=== PATIENT | male | born 1975 | race Caucasian/White ===

== ENCOUNTER 2021-02-23 19:58 | Inpatient (IN) | payer MEDICAID, SELFPAY ==
--- NOTE | 2021-02-23 19:58 | ECHOCS_ITS ---
Reason For Study: NSTEMI Procedure This was a 2D Doppler, Color Flow transthoracic echocardiogram. The study was technically difficult. Contrast injection was performed. Exam performed portable in patient room. Left Ventricle Normal LV size. The estimated ejection fraction is 55-60 %. No evidence for diastolic dysfunction. hypokinesis of a small portion of the mid inferior wall. Right Ventricle Normal RV size. Normal systolic function. Atria Normal left atrium. Normal right atrium. No doppler evidence for ASD. Mitral Valve There is no mitral valve stenosis. Mild-Moderate (1-2+) mitral valve insufficiency. Tricuspid Valve There is no tricuspid stenosis. Trivial tricuspid valve insufficiency. Unable to estimate RV systolic pressure due to insufficient tricuspid regurgitant envelope. Aortic Valve Trisinus/trileaflet aortic valve. There is no aortic stenosis. Trivial aortic valve insufficiency. Pulmonic Valve There is no pulmonic valvular stenosis. No pulmonic valve insufficiency. Great Vessels Normal aortic root. Pericardium/Pleural No pericardial effusion. Medication Diluted definity 2.5ml given slow IV push to enhance endocardial definition. MMode/2D Measurements & Calculations LVIDd: 4.3 cm IVSd: 1.2 cm Ao root diam: 3.8 cm LVIDs: 3.1 cm LVPWd: 1.0 cm RVDd: 3.1 cm FS: 29.2 % LAV(MOD-bp): 51.2 ml LVAd ap4: 34.6 cm2 LVAd ap2: 36.1 cm2 LAV(MOD-bp) Indexed: 21.6 ml/m2 LVLd ap4: 9.0 cm LVLd ap2: 9.0 cm LAV(MOD-sp2): 48.0 ml EDV(MOD-sp4): 107.7 ml EDV(MOD-sp2): 118.9 ml LAV(MOD-sp4): 51.4 ml EDV(sp4-el): 113.0 ml EDV(sp2-el): 122.9 ml LVAs ap4: 24.5 cm2 LVAs ap2: 22.4 cm2 LVLs ap4: 8.0 cm LVLs ap2: 7.7 cm ESV(MOD-sp4): 63.7 ml ESV(MOD-sp2): 55.1 ml ESV(sp4-el): 63.3 ml ESV(sp2-el): 55.4 ml EF(MOD-sp4): 40.9 % EF(MOD-sp2): 53.6 % EF(sp4-el): 44.0 % SV(MOD-sp4): 44.0 ml SV(MOD-sp2): 63.8 ml SV(sp4-el): 49.7 ml LA A4 area: 18.8 cm2 LA dimension(2D): 3.9 cm RA A4 area: 12.0 cm2 Time Measurements MV dec time: 0.19 sec Doppler Measurements & Calculations MV E max eddie: 84.2 cm/sec Lat Peak E' Eddie: 8.5 cm/sec Med Peak E' Eddie: 4.9 cm/sec MV A max eddie: 94.1 cm/sec E/E' lat: 9.9 E/E' med: 17.2 MV E/A: 0.90 Ao V2 max: 89.4 cm/sec LV V1 max: 73.3 cm/sec TR max eddie: 271.6 cm/sec Ao max P.2 mmHg LV V1 max P.2 mmHg TR max P.5 mmHg ECHO/Echo Complete W/ Contrast Interpretation Summary The estimated ejection fraction is 55-60 %. No evidence for diastolic dysfunction. Mild-Moderate (1-2+) mitral valve insufficiency. Trivial aortic valve insufficiency. Ordering Physician: Kandy Fong Performed By: Sho Blount, RICHIE, RVT
--- NOTE | 2021-02-23 19:59 | EKG12_ITS ---
Test Reason : AM EKG Blood Pressure : / mmHG Vent. Rate : 073 BPM Atrial Rate : 073 BPM P-R Int : 166 ms QRS Dur : 104 ms QT Int : 444 ms P-R-T Axes : 022 039 059 degrees QTc Int : 489 ms Normal sinus rhythm Prolonged QT Abnormal ECG When compared with ECG of 23-FEB-2021 20:44, MANUAL COMPARISON REQUIRED, DATA IS UNCONFIRMED Confirmed by BLADIMIR DIEGO, MORALES ([id number]), medical editor DEEDEE ROSALES ([id number]) on 02/28/2021 10:41:53 AM Referred By: OPAL Confirmed By:DIANA GRARISON MD
[2021-02-23 20:38] VITALS: PULSE 73; BMI 35.1
--- NOTE | 2021-02-23 20:45 | HP.PCM_ITS ---
Documented by User: NADINE Norris 02/23/21 21:07 HPI - General General Date of Admission: 02/23/21 Date of Service: 02/23/21 Chief Complaint: Chest pain HPI Narrative MARLENE WILSON, is a 46 M who presents from outside with complaints of chest pain. Patient states that the pain is 8 out of 10 currently and radiates to his left arm sometimes all the way down to his fingertips. Patient denies radiation to his back or jaw. Patient states that this was sudden onset earlier today. Patient received multiple doses of nitroglycerin and a loading dose of aspirin at outside facility with minor improvement of pain. Patient also received IV fentanyl which was more effective for pain control. Patient states that right now his pain is beginning to escalate again. EKG shows normal sinus rhythm with prolonged QT. Labs reviewed from prior facility, CBC unremarkable. CMP shows slightly elevated glucose 116 and high-sensitivity troponin 123.1. Chest x-ray and CTA negative for acute findings. [facility] Medical History (Updated 02/23/21 @ 21:38 by Wu Lancaster) Anxiety Depression DVT (deep venous thrombosis) Home Medications aripiprazole [Abilify] 2 mg PO DAILY 02/23/21 [History Last Taken 02/22/21] paroxetine HCl [Paxil] 80 mg PO DAILY 02/23/21 [History Last Taken 02/22/21] Allergy/AdvReac Type Severity Reaction Status Date / Time Penicillins AdvReac Anaphylaxis Verified 02/23/21 20:53 Family History (Updated 02/23/21 @ 20:58 by NADINE Norris) Grandfather Factor 5 Leiden mutation, heterozygous Hypertension Heart disease Sister Diabetes Mother Hypertension Father Unknown family medical history Other Bleeding disorder Surgical History (Updated 02/23/21 @ 20:58 by NADINE Norris) H/O knee surgery Social History (Updated 02/23/21 @ 20:59 by NADINE Norris) Smoking Status: Never smoker alcohol intake: current alcohol intake frequency: holidays/special occasions only substance use type: does not use ROS Constitutional Constitutional: Denies anorexia, chills, fatigue, malaise or weakness Cardiovascular Cardiovascular: Reports chest pain and radiating jaw, neck or arm pain; Denies edema or palpitations Respiratory/Chest Respiratory/Chest: Denies cough, shortness of breath at rest or shortness of breath with exertion Gastrointestinal Gastrointestinal: Denies abdominal pain, constipation, diarrhea, nausea or vo miting Genitourinary Genitourinary: Denies dysuria Musculoskeletal Musculoskeletal: Denies back pain, extremity pain, joint pain or joint stiffness Integumentary Integumentary: Denies dry skin Neurologic Neurologic: Denies abnormal gait, abnormal speech, confusion or dizziness Psychiatric Psychiatric: Reports anxiety and depression Endocrine Endocrinology: Denies change in body appearance Hematologic/Lymphatic Hematologic/Lymphatic: Denies easy bleeding or easy bruising Physical Exam Const alert and oriented x3 General Appearance: cooperative HEENT normocephalic and head/scalp atraumatic Eyes conjunctivae normal and no scleral icterus Neck supple and no JVD General: trachea midline Resp normal respiratory effort, normal air movement and clear to auscultation bilaterally Cardio regular rate, regular rhythm, S1 normal heart sound, S2 normal heart sound and peripheral pulses 2+ throughout GI normal to inspection, nondistended, normoactive bowel sounds, soft to palpation and non-tender Extremity normal capillary refill and no clubbing, cyanosis or edema General Extremity: no tenderness to palpation of joints or extremities Skin General Skin Exam: turgor normal Lesions: no lesions Rashes: no rashes Neuro no focal motor deficits and no sensory deficits noted Speech: speech normal Motor Exam: Negative for general weakness Psych thought process normal, cooperative and affect normal Appearance: appropriate Assessment & Plan Assessment/Plan (1) Chest pain: QUALIFIERS: Chest pain type: unspecified Qualified Code(s): R07.9 - Chest pain, unspecified (2) Factor 5 Leiden mutation, heterozygous: PLAN: 1. Chest pain -Admit to PCU for cardiac monitoring -Trend cardiac enzymes first value 123.5 from outside facility -CBC, CMP, lipid profile, TSH, mag ordered -Continue heparin drip per protocol -We will start atorvastatin, daily aspirin, lisinopril, metoprolol. -Consult cardiology, case discussed with Dr. Scott prior to patient's transfer -Echocardiogram ordered for a.m. -EKG in the upon arrival, shows normal sinus rhythm with QT prolongation -Daily weights with strict intake and output -Diet ordered n.p.o. at midnight -O2 per protocol 2. Factor V Leiden mutation -Patient reports he is not currently anticoagulated, daily baby aspirin only -CTA and CXR completed at outside facility negative for acute findings -Patient currently on heparin gtt for NSTEMI, will evaluate for anticoagulation pending results of cardiology evaluation 3. Anxiety and depression -Continue aripaprazole and paxil. DVT prophylaxis-SCD's This patient was seen by NADINE Norris under the supervision of Dr. Fong. Documented by User: Dr. Kandy Fong MD 02/23/21 22:10 HPI - General General Date of Admission: 02/23/21 [facility] Medical History (Updated 02/23/21 @ 21:38 by Wu Lancaster) Anxiety Depression DVT (deep venous thrombosis) Home Medications aripiprazole [Abilify] 2 mg PO DAILY 02/23/21 [History Last Taken 02/22/21] paroxetine HCl [Paxil] 80 mg PO DAILY 02/23/21 [History Last Taken 02/22/21] Allergy/AdvReac Type Severity Reaction Status Date / Time Penicillins AdvReac Anaphylaxis Verified 02/23/21 20:53 Family History (Updated 02/23/21 @ 20:58 by Cat Sargent NP-C) Grandfather Factor 5 Leiden mutation, heterozygous Hypertension Heart disease Sister Diabetes Mother Hypertension Father Unknown family medical history Other Bleeding disorder Surgical History (Updated 02/23/21 @ 20:58 by NADINE Norris) H/O knee surgery Social History (Updated 02/23/21 @ 20:59 by NADINE Norris) Smoking Status: Never smoker alcohol intake: current alcohol intake frequency: holidays/special occasions only substance use type: does not use
[2021-02-23 20:47] VITALS: RESP 16; O2SAT 98
[2021-02-23 20:50] VITALS: BP 166/115; PULSE 69; RESP 16; TEMP 36.6; O2SAT 96
[2021-02-23] MEDS: Morphine 2 MG/ML Syringe IV (21:22)
[2021-02-23] MEDS: HEPARIN/D5w 25,000 UNITS 25,000 UNITS/250 ML IV.SOLN. 14.2 UNITS IV (21:33)
[2021-02-23] MEDS: 0.9% Normal Saline 1,000 ML 100 ML IV (22:10)
[2021-02-23] MEDS: oxyCODONE 5 MG Tablet PO (22:33)
[2021-02-23] MEDS: Famotidine 20 MG Tablet PO (22:33)
[2021-02-23 22:34] VITALS: PULSE 67
[2021-02-23] MEDS: Metoprolol Tartrate 25 MG Tablet 12.5 MG PO (22:34)
[2021-02-23] MEDS: Atorvastatin Calcium 80 MG Tablet PO (22:34)
[2021-02-23] MEDS: Mag Hydrox/Al Hydrox/Simeth 30 ML UDC PO (22:35)
[2021-02-23 22:37] LABS: Magnesium 2.3 mg/dL (1.6-2.6)
[2021-02-23] MEDS: Paroxetine 20 MG Tablet 80 MG PO (22:37)
[2021-02-23] MEDS: ARIPiprazole 2 MG Tablet PO (22:38)
[2021-02-23 22:51] LABS: Troponin-I HS 1504.4 pg/mL (3.0-78.5)
[2021-02-23 23:31] LABS: Troponin-I HS 3131.5 pg/mL (3.0-78.5)
[2021-02-24] VITALS (19 sets, daily range): BP systolic 118–166; BP diastolic 74–113; PULSE 64–96; RESP 13–23; TEMP 36.5–36.7; O2SAT 94–99
[2021-02-24] MEDS: Morphine 2 MG/ML Syringe IV ×3 (00:41→08:42)
[2021-02-24 02:47] LABS: Absolute Lymphocyte Count 1.73 X10^3/uL (0.83-4.51); Absolute Neutrophil Count 7.9 X10^3/uL (2.0-7.7); Basophil# 0.05 X10^3/uL; Basophil% 0.5 % (0-1); Eosinophil# 0.03 X10^3/uL; Eosinophils% 0.3 % (0-5); Hematocrit 43.9 % (40-54); Lymphocyte # 1.73 X10^3/ul (0.83-4.51); Lymphocyte % 16.9 % (19-41); Mean Corp Hgb Conc 34.2 g/dL (32-36); Mean Corpuscular Hgb 29.6 pg (27.0-32.0); Mean Corpuscular Volume 86.8 fL (80-94); Mean Platelet Vol. 10.8 fl (6.2-12.0); Monocyte# 0.51 X10^3/uL; NRBC Flagged by Analyzer 0 % (0-5); Neutrophil # 7.88 X10^3/uL (2.7-7.7); Neutrophil % 76.7 % (47-70); Platelet Count 200 K/mm3 (150-450); RBC Distribution Width CV 13.1 % (11.6-14.6); RBC Distribution Width SD 40.2 fl (35.1-43.9); Red Blood Count 5.06 M/mm3 (4.6-6.2); White Blood Count 10.3 K/mm3 (4.4-11.0)
[2021-02-24 02:59] LABS: Partial Thromboplast Time 68.7 Seconds (24.1-36.2)
[2021-02-24] MEDS: oxyCODONE 5 MG Tablet PO ×2 (03:09→10:39)
[2021-02-24 03:11] LABS: ALB/GLOB Ratio 1.1 RATIO (0.9-2.4); AST(SGOT) 103 U/L (15-37); Alanine Aminotransfer ALT/SGPT 48 U/L (16-61); Albumin, Serum 3.6 g/dL (3.2-5.0); Alkaline Phosphatase 94 U/L (45-117); Anion Gap 8 (5-15); BUN 9 mg/dL (7-18); BUN/Creat Ratio 9.6 RATIO (10-20); Calcium,Total 7.9 mg/dL (8.5-10.1); Chloride 106 mmol/L (98-107); Cholesterol 198 mg/dL (200); Creatinine, Serum 0.94 mg/dL (0.70-1.30); EST Glomerular Filtration Rate 91 mL/min (>60); Est Glom Filt Rate - Afr Amer 111 mL/min (>60); Estimated Creatinine Clearance 105.48 ml/min; Globulin 3.3 g/dL (2.2-4.2); Glucose 136 mg/dL (74-106); High Density Lipoprotein 34 mg/dL; Potassium 3.9 mmol/L (3.5-5.1); Protein, Total 6.9 g/dL (6.4-8.2); Sodium Level 136 mmol/L (136-145); Triglycerides 184 mg/dL; Very Low Density Lipoprotein 37 mg/dL (5-40)
[2021-02-24] MEDS: Mag Hydrox/Al Hydrox/Simeth 30 ML UDC PO (05:31)
--- NOTE | 2021-02-24 05:55 | EKG12_ITS ---
Test Reason : NSTEMI ADMIT Blood Pressure : / mmHG Vent. Rate : 075 BPM Atrial Rate : 075 BPM P-R Int : 160 ms QRS Dur : 100 ms QT Int : 432 ms P-R-T Axes : 021 042 058 degrees QTc Int : 482 ms Normal sinus rhythm Prolonged QT Abnormal ECG No previous ECGs available Confirmed by BLADIMIR DIEGO, MORALES ([id number]), publications editor DEEDEE ROSALES ([id number]) on 02/28/2021 10:42:20 AM Referred By: OPAL Confirmed By:DIANA GARRISON MD
[2021-02-24] MEDS: Lisinopril 10 MG Tablet PO (06:23)
[2021-02-24] MEDS: Aspirin E.C. 81 MG Tablet PO (06:23)
[2021-02-24] MEDS: Metoprolol Tartrate 25 MG Tablet 12.5 MG PO ×2 (06:23→21:04)
[2021-02-24] MEDS: 0.9% Normal Saline 1,000 ML 100 ML IV (08:31)
[2021-02-24] MEDS: 0.9% Saline Lock 10 ML Syringe IV ×2 (08:42→14:07)
--- NOTE | 2021-02-24 09:24 | CASEMGMT ---
According to the [facility] website, the following are in-network tertiary facilities: [facility], [place], [place], [facility], [facility], [facility], and . Yonis ORTEGA CM
[2021-02-24] MEDS: HEPARIN/D5w 25,000 UNITS 25,000 UNITS/250 ML IV.SOLN. 14.2 UNITS IV (09:45)
[2021-02-24] MEDS: Famotidine 20 MG Tablet PO ×2 (10:39→21:04)
--- NOTE | 2021-02-24 11:10 | CASEMGMT ---
RN CM Face to Face with patient for initial transition planning/care coordination assessment. RN CM introduced self and role at [facility]. Patient lying in bed, alert and oriented. Patient willing to participate in assessment and is able to answer all questions appropriately. Care providers, pharmacy, and demographics verified. Patient wishes to discharge home, denies need for home health at this time. Patient states he has no further needs or concerns at this time. CM to follow for discharge planning needs that may arise. PCP: Hannah Meier Specialists: Shad psychiatrmike Preferred Pharmacy: [facility] Insurance: [employer] Prescription Benefit: yes Living Will/HPOA: no, would like to complete, SW updated LNOK: Living Arrangements: Patient lives in a 3rd floor apartment. Patient is independent and able to ambulate stairs. Transportation: self, DME/HHC: Patient states he has BP cuff at home. Patient denies previous HHC Disposition Plan: Patient to discharge home with family support and follow-up plans in place. Mariama WOOTENN, RN, CM
--- NOTE | 2021-02-24 13:45 | EKG12_ITS ---
Test Reason : Blood Pressure : / mmHG Vent. Rate : 072 BPM Atrial Rate : 072 BPM P-R Int : 164 ms QRS Dur : 110 ms QT Int : 444 ms P-R-T Axes : 048 047 073 degrees QTc Int : 486 ms Normal sinus rhythm Prolonged QT Abnormal ECG Confirmed by LAI DIEGO, CLINT ([id number]), state editor DEEDEE ROSALES ([id number]) on 03/04/2021 9:13:20 AM Referred By: VANE Confirmed By:CLINT HOYT MD
--- NOTE | 2021-02-24 14:03 | CRPHASE1 ---
Patient Communication PHII Cardiac Rehab Discussed with Patient:: Yes Guide to Cardiac Rehab Given to Patient:: Yes Cardiac Rehab Facility Choice List Given to Patient:: Yes Choice Program [facility] CR PHII:: Communication Given to CR Choice Program Other:: Communication Given to CR Electrical Inspector:: Mike Scott Refer Phase II Cardiac Rehab:: Yes Sessions:: 36 sessions - 3 days/wk, 12 weeks - PT LIVES IN [place], MAY DECIDE TO GO TO [facility] Cardiac Rehabilitation Info Cardiac Rehabilitation Program Information: Cardiac Rehabilitation is important for patients like you who are recovering from a heart problem. Cardiac rehabilitation programs are recognized as integral to the continued care of the patient with coronary heart disease. The cardiac rehabilitation program is designed to optimize a patient's physical, psychological, and social functioning. Health health care assistant work in cardiac rehabilitation programs and assist you with getting the treatments you need to get stronger and healthier - like exercise, healthy eating habits, and medications. Cardiac rehabilitation has been show to help people with heart problems live longer and have better life enjoyment than people who do not go to cardiac rehabilitation. Please contact the Cardiac Rehabilitation Program at [facility] at in two weeks if you have not heard from them.
--- NOTE | 2021-02-24 14:06 | CRPH1.INSTRU ---
General Education CAD and cardiac anatomy and function:: Patient communicates acknowledgment Explanation of diagnoses and procedures:: Patient communicates acknowledgment Sign/Symptoms of MS:: Patient communicates acknowledgment Antiplatelet therapy: Patient communicates acknowledgment Smoking Patient Nicotine/Smoking Risk Factors Are:: Never smoked Dyslipidemia Patient Dyslipidemia Risk Factors Are:: Total Cholesterol, Triglycerides, HDL, LDL Recommendations Include:: Lipid profile provided, Reviewed NCEP/ATP guidelines, Therapeutic Lifestyle Change dietary guidelines Dyslipidemia Response Code:: Patient communicates acknowledgment Overweight/Obesity Patient Overweight/Obesity Risk Factors Are:: Obesity - > or = 30 Recommendations Include:: Weight loss of 5-10%, Reduced calorie diet, Exercise 5-7 times/week Overweight/Obesity:: Patient communicates acknowledgment Hypertension Patient Hypertension Risk Factors Are:: No documented hx of HTN Diabetes Patient Diabetes Risk Factors Are:: No documented hx of diabetes Metabolic Syndrome Patient Metabolic Syndrome Risk Factors Are [3 of 5]:: Fasting blood sugar > 100 mg/dL, Waist circumference > 35 [female] or 40 [male], High triglyceride >150, Low HDL <40 [male] or < 50 [female] Recommendations Include:: Reinforce compliance to risk factor modifications, Encouraged follow-up with Primary Care Physician Metabolic Syndrome Response Code:: Patient communicates acknowledgment Sedentary Patient Sedentary Risk Factors Are:: Lack of regular exercise Recommendations Include:: Aerobic exercise 5-7 times/week for 20-30 minutes continuously, Benefits of regular exercise, Discussed home walking program, Monitored Outpatient Cardiac Rehab Sedentary Response Code:: Patient communicates acknowledgment Stress Recommendations Include:: Identification of stressors, and assessment of coping skills, Stress management techniques Stress Response Code:: Patient communicates acknowledgment
--- NOTE | 2021-02-24 14:31 | PCM.CONS.C ---
Assessment & Plan Assessment/Plan (1) Chest pain: QUALIFIERS: Chest pain type: unspecified Qualified Code(s): R07.9 - Chest pain, unspecified PLAN: Secondary to non-STEMI. Patient was treated with thrombectomy and drug-eluting stent placement to the OM 2. We will keep the patient on aspirin, Brilinta, statin, beta-mick. HPI Consult Data Date of Consult: 02/24/21 HPI Narrative HPI Narrative: 46-year-old male presenting with chest pain. He was diagnosed with non-STEMI and underwent coronary angiography which revealed 100% occlusion of OM 2 that was treated with thrombectomy and drug-eluting stent placement. Patient tolerated the procedure well he is asymptomatic after the procedure. [facility] Medical History (Updated 02/23/21 @ 21:38 by Wu Lancaster) Anxiety Depression DVT (deep venous thrombosis) Home Medications aripiprazole [Abilify] 2 mg PO DAILY 02/23/21 [History Last Taken 02/22/21] paroxetine HCl [Paxil] 80 mg PO DAILY 02/23/21 [History Last Taken 02/22/21] Allergy/AdvReac Type Severity Reaction Status Date / Time Penicillins AdvReac Anaphylaxis Verified 02/23/21 20:53 Family History (Updated 02/23/21 @ 20:58 by NADINE Norris) Grandfather Factor 5 Leiden mutation, heterozygous Hypertension Heart disease Sister Diabetes Mother Hypertension Father Unknown family medical history Other Bleeding disorder Surgical History (Updated 02/23/21 @ 20:58 by NADINE Norris) H/O knee surgery Social History (Updated 02/23/21 @ 20:59 by NADINE Norris) Smoking Status: Never smoker alcohol intake: current alcohol intake frequency: holidays/special occasions only substance use type: does not use Physical Exam Const alert and oriented x3 Orientation / Consciousness: awake HEENT normocephalic Eyes no scleral icterus Chest inspection of chest normal Resp normal respiratory effort Cardio regular rate Extremity no pedal edema Skin no rashes or lesions noted Neuro oriented x3 Psych mental status grossly normal Charges/Coding Visit Charges Inpatient E&M: 68106 Init Hosp L3 Objective Data Vital Signs: Vital Signs Temp Pulse Resp BP Pulse Ox 97.9 F 70 18 136/90 H 97 02/24/21 14:00 02/24/21 14:00 02/24/21 14:00 02/24/21 14:00 02/24/21 14:00 Oxygen Delivery Method Room Air Weight: 255 lb 11.779 oz Body Mass Index (BMI) 35.1 Intake & Output: Intake and Output for Last 24 Hours 02/22/21 02/23/21 02/24/21 23:59 23:59 23:59 Intake Total 1767.93 / 1767.93 Balance 1767.93 / 1767.93 Lab / Micro Data Result Diagrams: 02/24/21 02:35 02/24/21 02:35 Labs: Laboratory Results - last 24 hr 02/23/21 21:10: Magnesium 2.3 02/23/21 21:10: Troponin I High Sens 1504.4 H* 02/23/21 22:40: Troponin I High Sens 3131.5 H* 02/24/21 02:35: WBC 10.3, RBC 5.06, Hgb 15.0, Hct 43.9, MCV 86.8, MCH 29.6, MCHC 34.2, RDW Std Deviation 40.2, RDW Coeff of Essie 13.1, Plt Count 200, MPV 10.8, Immature Gran % (Auto) 0.600, Neut % (Auto) 76.7 H, Lymph % (Auto) 16.9 L, [place] % (Auto) 5.0, Eos % (Auto) 0.3, Baso % (Auto) 0.5, Absolute Neuts (auto) 7.9 H, Absolute Lymphs (auto) 1.73, Nucleated RBC % 0 02/24/21 02:35: Sodium 136, Potassium 3.9, Chloride 106, Carbon Dioxide 22.0, Anion Gap 8, BUN 9, Creatinine 0.94, Estim Creat Clear Calc 105.48, Est GFR (MDRD) Af Amer 111, Est GFR (MDRD) Non-Af 91, BUN/Creatinine Ratio 9.6 L, Glucose 136 H, Calcium 7.9 L, Total Bilirubin 0.80, AST 103 H, ALT 48, Alkaline Phosphatase 94, Total Protein 6.9, Albumin 3.6, Globulin 3.3, Albumin/Globulin Ratio 1.1, Triglycerides 184, Cholesterol 198, LDL Cholesterol 127, VLDL Cholesterol 37, HDL Cholesterol 34 L 02/24/21 02:35: Troponin I High Sens 95650.5 H* 02/24/21 02:35: APTT 68.7 H 02/24/21 09:00: APTT 64.0 H Cardiology Labs/Tests 02/23/21 21:10: Magnesium 2.3 02/24/21 02:35: WBC 10.3, RBC 5.06, Hgb 15.0, Hct 43.9, MCV 86.8, MCH 29.6, MCHC 34.2, Plt Count 200, MPV 10.8, Immature Gran % (Auto) 0.600, Neut % (Auto) 76.7 H, Lymph % (Auto) 16.9 L, [place] % (Auto) 5.0, Eos % (Auto) 0.3, Baso % (Auto) 0.5, Absolute Neuts (auto) 7.9 H, Nucleated RBC % 0 02/24/21 02:35: Sodium 136, Potassium 3.9, Chloride 106, Carbon Dioxide 22.0, Anion Gap 8, BUN 9, Creatinine 0.94, Est GFR (MDRD) Af Amer 111, Est GFR (MDRD) Non-Af 91, BUN/Creatinine Ratio 9.6 L, Glucose 136 H, Calcium 7.9 L, Total Bilirubin 0.80, Triglycerides 184, Cholesterol 198, LDL Cholesterol 127, VLDL Cholesterol 37, HDL Cholesterol 34 L 02/24/21 02:35: APTT 68.7 H 02/24/21 09:00: APTT 64.0 H Rhythm: EKG: ECHO: Stress Test: Cardiac Cath: PCI: CT Surgery: Holter monitor: EPS: PPM: CXR: Chest CT Scan:
--- NOTE | 2021-02-24 14:36 | PCM.PN.HOSP ---
Documented by User: Ophelia Rene NP, VARIOUS EXCEPTIONALITIES TEACHER-C 02/24/21 14:51 Subjective Subjective Patient seen and examined. Reports continuous chest pain however improved with morphine. Denies shortness of breath. States chest pain radiates down left arm. Patient reports upper extremity tremors which have been ongoing for 2 years and asked about further evaluation. Objective Data Objective Data Vital Signs: Vital Signs Temp Pulse Resp BP Pulse Ox 97.9 F 70 18 136/90 H 97 02/24/21 14:00 02/24/21 14:00 02/24/21 14:00 02/24/21 14:00 02/24/21 14:00 Oxygen Delivery Method Room Air Weight: 255 lb 11.779 oz Body Mass Index (BMI) 35.1 Intake & Output: Intake and Output for Last 24 Hours 02/22/21 02/23/21 02/24/21 23:59 23:59 23:59 Intake Total 1767.93 / 1767.93 Balance 1767.93 / 1767.93 Lab / Micro Data Result Diagrams: 02/25/21 05:08 02/25/21 05:08 Labs: Laboratory Results - last 24 hr 02/23/21 21:10: Magnesium 2.3 02/23/21 21:10: Troponin I High Sens 1504.4 H* 02/23/21 22:40: Troponin I High Sens 3131.5 H* 02/24/21 02:35: WBC 10.3, RBC 5.06, Hgb 15.0, Hct 43.9, MCV 86.8, MCH 29.6, MCHC 34.2, RDW Std Deviation 40.2, RDW Coeff of Essie 13.1, Plt Count 200, MPV 10.8, Immature Gran % (Auto) 0.600, Neut % (Auto) 76.7 H, Lymph % (Auto) 16.9 L, [place] % (Auto) 5.0, Eos % (Auto) 0.3, Baso % (Auto) 0.5, Absolute Neuts (auto) 7.9 H, Absolute Lymphs (auto) 1.73, Nucleated RBC % 0 02/24/21 02:35: Sodium 136, Potassium 3.9, Chloride 106, Carbon Dioxide 22.0, Anion Gap 8, BUN 9, Creatinine 0.94, Estim Creat Clear Calc 105.48, Est GFR (MDRD) Af Amer 111, Est GFR (MDRD) Non-Af 91, BUN/Creatinine Ratio 9.6 L, Glucose 136 H, Calcium 7.9 L, Total Bilirubin 0.80, AST 103 H, ALT 48, Alkaline Phosphatase 94, Total Protein 6.9, Albumin 3.6, Globulin 3.3, Albumin/Globulin Ratio 1.1, Triglycerides 184, Cholesterol 198, LDL Cholesterol 127, VLDL Cholesterol 37, HDL Cholesterol 34 L 02/24/21 02:35: Troponin I High Sens 76804.5 H* 02/24/21 02:35: APTT 68.7 H 02/24/21 09:00: APTT 64.0 H Physical Exam Const alert, oriented x3 and no apparent distress Orientation / Consciousness: awake, oriented to person, oriented to place and oriented to time HEENT normocephalic and moist oral mucous membranes Eyes PERRL, EOMs intact bilaterally and conjunctivae normal Neck no lymphadenopathy Resp normal respiratory effort and clear to auscultation bilaterally Cardio regular rate, regular rhythm and no murmurs Peripheral Pulses: pulses 2+ throughout GI normal to inspection, nondistended, normoactive bowel sounds, non-tender and non-distended Extremity normal to inspection Skin no rashes or lesions noted Lesions: no lesions Rashes: no rashes Trauma: no lacerations or abrasions Neuro CN's II-XII intact bilaterally, no focal motor deficits, no sensory deficits noted and deep tendon reflexes 2+ bilaterally Psych mental status grossly normal and affect normal Assessment & Plan Assessment/Plan (1) Chest pain: QUALIFIERS: Chest pain type: unspecified Qualified Code(s): R07.9 - Chest pain, unspecified PLAN: 1. NSTEMI- cardiology consulted. Patient underwent stent to totally occluded OM 2. Patient also underwent thrombectomy, cath report pending. On Integrilin. Continue aspirin, Brilinta, lisinopril, statin, metoprolol. 2. Factor V Leiden-reports history of blood clots however has only been on aspirin daily. Placed on heparin drip on admission. CTA without PE. 3. Anxiety/depression-on Paxil, Abilify. States Abilify was recently added 1 to 2 weeks ago. 4. Upper extremity tremors-will refer to neurology as outpatient for further work-up and evaluation. 5. Elevated glucose-hemoglobin A1c pending. DVT prophylaxis- heparin gtt This patient was seen by NADINE Nazario under the supervision of Dr. Granados. Documented by User: Dr. Nasir Granados MD 02/25/21 13:44 Subjective Subjective Patient has chronic tremors. History of bipolar. He also has history of factor V Leiden most related to sinusitis 3 times DVT in the past. Was diagnosed in the early 90s but never followed. Currently no chest pain or shortness of breath. Objective Data Lab / Micro Data Result Diagrams: 02/25/21 05:08 02/25/21 05:08 Physical Exam Narrative General: Alert, Oriented x3, Cooperative HEENT: Atraumatic, PERRLA, EOMI, Normocephalic Oral: No Gingival or Mucosal Lesions/ Ulcerations Neck: Supple, No JVD, Negative Carotid Bruits Lungs: Air entry diminished in bilateral lung bases. No crepitation/rhonchi Cardiovascular: Regular rate, Regular Rhythm, Normal S1, Normal S2, No murmurs Abdomen: Bowel Sounds Present, Soft, Non Tender, Non-Distended : No renal angle tenderness. No suprapubic tenderness. Extremities: Right radial wrist no hematoma. No edema, Capillary Refill Less than 3 Seconds Skin: No rashes, No breakdown Musculoskeletal: No Tenderness to Palpation of Joints or Extremities Neurological: Mild tremors, kinetic. Cranial nerves II-XII grossly intact, Deep Tendon Reflexes 2+/4 and Symmetrical, Neuro grossly intact Psych/Mental Status: Normal Affect, Appropriate. Assessment & Plan Assessment/Plan (1) NSTEMI (non-ST elevated myocardial infarction): (2) Atherosclerosis of coronary artery of [place] heart without angina pectoris: QUALIFIERS: Coronary Disease-Associated Artery/Lesion type: [place] artery Qualified Code(s): I25.10 - Atherosclerotic heart disease of [place] coronary artery without angina pectoris (3) Factor 5 Leiden mutation, heterozygous: PLAN: This patient was seen in conjunction with Ophelia NATARAJAN. I have independently interviewed and examined the patient and reviewed pertinent history, examination findings, laboratory and plan of management. I have reviewed the note and agree with the documented findings with the few additional points. In brief, patient is admitted for chest pain and work-up shows non-STEMI. EKG normal sinus rhythm with prolonged QTC. Patient also history of factor V Leiden and 3 times DVT but never followed any head worker after diagnosis in early 90s. Patient was taken to cardiac cath and was found to have restenosis of OM 2 for which he had PCI/stent by biological photographer Dr. Scott. Patient history of anxiety depression, bipolar 1 and concerned about tremors which seems action/kinetic tremor. Patient on aspirin, Brilinta, lisinopril and statin metoprolol. Patient is advised to follow with head worker in 2 weeks. Discussed with biological photographer and patient Brilinta can be changed to Plavix if head worker decided to put on Coumadin after 1 month of Brilinta. Rest of comorbidities as mentioned above. Discharge medication reconciliation done. Discharge follow-up instructions completed. Discharge process discussed with the patient and all questions were answered to patient's satisfaction. Total time spent, exact 35 minutes on discharge meds reconciliation, examination, coordination of care with nurses and ancillary staff, review of imaging and blood test and discussion with the patient on follow-up instructions I have discussed my assessment with Ophelia NATARAJAN and orders have been reviewed. Charges/Coding Visit Charges Inpatient E&M: 32811 Disch Hosp
[2021-02-24 14:52] LABS: Hematocrit 47.9 % (40-54); Hemoglobin 16.4 g/dL (13.0-16.5); Mean Corp Hgb Conc 34.2 g/dL (32-36); Mean Corpuscular Hgb 29.9 pg (27.0-32.0); Mean Corpuscular Volume 87.4 fL (80-94); Mean Platelet Vol. 10.3 fl (6.2-12.0); Platelet Count 201 K/mm3 (150-450); RBC Distribution Width CV 13.2 % (11.6-14.6); RBC Distribution Width SD 41.7 fl (35.1-43.9); Red Blood Count 5.48 M/mm3 (4.6-6.2); White Blood Count 11.6 K/mm3 (4.4-11.0)
--- NOTE | 2021-02-24 15:02 | CASEMGMT ---
SW completed Healthcare Power of Employee Adviser and a Healthcare Living Will with patient. Copies were made and given to patient along with originals. SW also placed a copy of each in his chart. Irina OTOOLE
[2021-02-24 15:35] LABS: Hemoglobin A1c 5.6 % (3.8-5.6)
[2021-02-24] MEDS: TICAGRELOR 90 MG TABLET PO (21:04)
[2021-02-24] MEDS: Paroxetine 20 MG Tablet 80 MG PO (21:04)
[2021-02-24] MEDS: Atorvastatin Calcium 80 MG Tablet PO (21:04)
[2021-02-24] MEDS: Acetaminophen 325 MG Tablet 650 MG PO (21:04)
[2021-02-24] MEDS: ARIPiprazole 2 MG Tablet PO (21:48)
[2021-02-25] VITALS (8 sets, daily range): BP systolic 95–110; BP diastolic 53–67; PULSE 70–98; RESP 12–16; TEMP 36.6–36.8; O2SAT 94–96
[2021-02-25 05:31] LABS: Hematocrit 46.9 % (40-54); Hemoglobin 15.4 g/dL (13.0-16.5); Mean Corp Hgb Conc 32.8 g/dL (32-36); Mean Corpuscular Volume 91.2 fL (80-94); Mean Platelet Vol. 10.6 fl (6.2-12.0); Platelet Count 173 K/mm3 (150-450); RBC Distribution Width CV 13.2 % (11.6-14.6); RBC Distribution Width SD 43.4 fl (35.1-43.9); Red Blood Count 5.14 M/mm3 (4.6-6.2); White Blood Count 7.6 K/mm3 (4.4-11.0)
[2021-02-25 05:58] LABS: ALB/GLOB Ratio 0.8 RATIO (0.9-2.4); AST(SGOT) 133 U/L (15-37); Alanine Aminotransfer ALT/SGPT 62 U/L (16-61); Albumin, Serum 3.1 g/dL (3.2-5.0); Alkaline Phosphatase 97 U/L (45-117); Anion Gap 7 (5-15); BUN 11 mg/dL (7-18); BUN/Creat Ratio 9.7 RATIO (10-20); Calcium,Total 8.2 mg/dL (8.5-10.1); Chloride 106 mmol/L (98-107); Creatinine, Serum 1.13 mg/dL (0.70-1.30); EST Glomerular Filtration Rate 74 mL/min (>60); Est Glom Filt Rate - Afr Amer 89 mL/min (>60); Estimated Creatinine Clearance 87.75 ml/min; Globulin 3.7 g/dL (2.2-4.2); Glucose 108 mg/dL (74-106); Protein, Total 6.8 g/dL (6.4-8.2); Sodium Level 133 mmol/L (136-145)
[2021-02-25] MEDS: Aspirin E.C. 81 MG Tablet PO (08:15)
--- NOTE | 2021-02-25 10:00 | EKG12_ITS ---
Test Reason : AM EKG Blood Pressure : / mmHG Vent. Rate : 079 BPM Atrial Rate : 079 BPM P-R Int : 156 ms QRS Dur : 098 ms QT Int : 446 ms P-R-T Axes : 031 062 076 degrees QTc Int : 511 ms Normal sinus rhythm Inferior infarct , age undetermined , cannot be excluded Prolonged QT Abnormal ECG Confirmed by LAI DIEGO, CLINT ([id number]), acquisition editor DEEDEE ROSALES ([id number]) on 03/04/2021 9:02:11 AM Referred By: DR JOSEPH Confirmed By:CLINT HOYT MD
[2021-02-25] MEDS: Metoprolol Tartrate 25 MG Tablet 12.5 MG PO (10:44)
[2021-02-25] MEDS: TICAGRELOR 90 MG TABLET PO (10:44)
[2021-02-25] MEDS: Famotidine 20 MG Tablet PO (10:44)
--- NOTE | 2021-02-25 13:11 | PCM.DC ---
Discharge Instructions Diet Discharge Diet: Low fat / Low cholesterol Activity Discharge Activity: Return to Normal Activity Additional Activity Instructions:: Follow-up post cath instructions Dressing / Incision Call your doctor if you observe: Shortness of breath, Dizziness and Chest pain Follow Up Care Test Results: Test results from this visit will be discussed in further detail at your follow-up appointment, if applicable. Discharge Plan Admission Admit Date/Time: 02/23/21 19:58 Primary Reason for Your Visit: Myocardial infarction, stent of OM 2 Attending Provider: Nasir Granados Consulting Providers: Mike Scott Discharge Orders/Prescriptions Prescriptions: New aspirin 81 mg Tablet,Delayed Release (Dr/Ec) 81 mg PO DAILY@0800 Qty: 30 RF: 0 metoprolol tartrate 25 mg Tablet 12.5 mg PO BID Qty: 60 RF: 0 Brilinta 90 mg Tablet 90 mg PO BID Qty: 60 RF: 0 atorvastatin 40 mg tablet 40 mg PO QHS Qty: 30 RF: 0 Continued aripiprazole [Abilify] 2 mg tablet 2 mg PO DAILY RF: 0 paroxetine HCl [Paxil] 20 mg tablet 80 mg PO DAILY RF: 0 Referrals / Follow Up: Provider, Primary [Other] - See Referral Note (Please establish with PCP and follow-up in 1 to 2 weeks.) Mike Scott MD [STAFF PHYSICIAN] - Within 2 Weeks (May see CASE COORDINATOR/PA) Ti Arguello MD [STAFF PHYSICIAN] - Within 1 Month (Call for outpatient evaluation of upper extremity tremors.) Tommie Swanson MD [STAFF PHYSICIAN] - See Referral Note (Call for follow up regarding factor V Leiden/anticoagulation.) Disposition Disposition (needs filled in before D/C Order can be placed): Home, Self Care
--- NOTE | 2021-02-25 13:19 | PCM.DC.SUM ---
Documented by User: Ophelia Rene NP, LOCOMOTIVE DRIVER-C 02/25/21 13:24 Providers Date of Admission: 02/23/21 Date of Discharge: 02/25/21 Consultations 02/23/21 19:59 Consult: Cardiology Routine Consulting Provider: Mike Scott Reason for Consult: NSTEMI, chest pain EMERGENT Consult: No MD Notified: Yes Date Notified: 02/23/21 Time Notified: 19:59 Method of Notification: called per [facility] ED Reason For Visit: NSTEMI Diagnosis Discharge Diagnosis (1) Chest pain: Status: Acute Code(s): R07.9 - Chest pain, unspecified Qualifiers: Chest pain type: unspecified Qualified Code(s): R07.9 - Chest pain, unspecified Medications at Discharge Home Medications aripiprazole [Abilify] 2 mg PO DAILY 02/23/21 paroxetine HCl [Paxil] 80 mg PO DAILY 02/23/21 aspirin 81 mg PO DAILY@0800 #30 tab 02/25/21 atorvastatin 40 mg PO QHS #30 tab 02/25/21 metoprolol tartrate 12.5 mg PO BID #60 tab 02/25/21 ticagrelor [Brilinta] 90 mg PO BID #60 tab 02/25/21 Hospital Course Operations None Procedures 2-D Echocardiogram and Cardiac catheterization Summary of Care Provided Minutes Spent on Discharge: 35 Hospital Course: Patient is a 46-year-old male admitted February 23, 2021 due to chest pain. 1. NSTEMI- cardiology consulted. Patient underwent stent/thrombectomy to totally occluded OM 2. Continue aspirin, Brilinta, statin, metoprolol. Echocardiogram demonstrates an EF of 55 to 60%, mild to moderate mitral valve insufficiency. Follow-up with cardiology in 2 weeks. 2. Factor V Leiden-reports history of blood clots however has only been on aspirin daily. CTA without PE. Referred to hematology for evaluation regarding initiating anticoagulation. If anticoagulation is added, patient may continue aspirin, Brilinta and anticoagulation for 1 month followed by Brilinta and anticoagulation only thereafter. 3. Anxiety/depression-on Paxil, Abilify. States Abilify was recently added. 4. Upper extremity tremors- refer to neurology as outpatient for further work-up and evaluation. Physical Exam Const alert, oriented x3 and no apparent distress Orientation / Consciousness: awake, oriented to person, oriented to place and oriented to time HEENT normocephalic and moist oral mucous membranes Eyes PERRL, EOMs intact bilaterally and conjunctivae normal Neck no lymphadenopathy Resp normal respiratory effort and clear to auscultation bilaterally Cardio regular rate, regular rhythm and no murmurs Peripheral Pulses: pulses 2+ throughout GI normal to inspection, nondistended, normoactive bowel sounds, non-tender and non-distended Extremity normal to inspection Skin no rashes or lesions noted Lesions: no lesions Rashes: no rashes Trauma: no lacerations or abrasions Neuro CN's II-XII intact bilaterally, no focal motor deficits, no sensory deficits noted and deep tendon reflexes 2+ bilaterally Psych mental status grossly normal and affect normal Patient seen and examined prior to discharge. Physical assessment as noted above. Patient is stable for discharge with follow up recommendations as noted above. This patient was seen by NADINE Nazario under the supervision of Dr. Granados. Medical Records Data Medical Nutrition Assessment Dietitian: Nutrition Therapy Diagnosis Start: 02/24/21 15:22 Freq: Status: Active Protocol: Document 02/24/21 15:33 AG (Rec: 02/24/21 15:33 AG [id number]) Nutrition Malnutrition Evidence of Malnutrition Exists No Recommendation Dietitian Recommendations/Changes Continue cardiac heart healthy diet. Weight / BMI Weight Weight: 256 lb 2.834 oz Body Mass Index (BMI) 35.1 ABG / Lab / Microbiology Data Result Diagrams: 02/25/21 05:08 02/25/21 05:08 Laboratory: Laboratory Results - last 24 hr 02/24/21 01:12: WBC 11.6 H, RBC 5.48, Hgb 16.4, Hct 47.9, MCV 87.4, MCH 29.9, MCHC 34.2, RDW Std Deviation 41.7, RDW Coeff of Essie 13.2, Plt Count 201, MPV 10.3 02/24/21 02:35: MCV 86.8, MCHC 34.2 02/24/21 14:45: Hemoglobin A1c 5.6 02/25/21 05:08: WBC 7.6, RBC 5.14, Hgb 15.4, Hct 46.9, MCV 91.2 D, MCH 30.0, MCHC 32.8, RDW Std Deviation 43.4, RDW Coeff of Essie 13.2, Plt Count 173, MPV 10.6 02/25/21 05:08: Sodium 133 L, Potassium 4.0, Chloride 106, Carbon Dioxide 20.0 L, Anion Gap 7, BUN 11, Creatinine 1.13, Estim Creat Clear Calc 87.75, Est GFR (MDRD) Af Amer 89, Est GFR (MDRD) Non-Af 74, BUN/Creatinine Ratio 9.7 L, Glucose 108 H, Calcium 8.2 L, Total Bilirubin 2.40 H, AST 133 H, ALT 62 H, Alkaline Phosphatase 97, Total Protein 6.8, Albumin 3.1 L, Globulin 3.7, Albumin/Globulin Ratio 0.8 L Radiography Diagnostic Testing: Radiology Impression Echocardiogram 02/23/21 19:58 Interpretation Summary The estimated ejection fraction is 55-60 %. No evidence for diastolic dysfunction. Mild-Moderate (1-2+) mitral valve insufficiency. Trivial aortic valve insufficiency. Ordering Physician: Kandy Fong Performed By: Sho Blount, RICHIE, RVT D/C Instructions Discharge Diet: Low fat / Low cholesterol Additional Activity Instructions: Follow-up post cath instructions Call your doctor if you observe: Shortness of breath, Dizziness and Chest pain Meaningful Use Info Meaningful Use Diagnoses (Choose all that apply): AMI AMI/Post PCI/Angioplasty Aspirin given w/in 24hrs of arrival?: Yes ASA at discharge?: Yes Antiplatelet Therapy at Discharge:: Yes Statins at discharge?: Yes Jean/ARB at discharge?: No Reason Jean/ARB not ordered:: Not indicated Beta Matti at discharge?: Yes Done w/ Acute [place] measure.: Yes Discharge Plan Admission Admit Date/Time: 02/23/21 19:58 Primary Reason for Your Visit: Myocardial infarction, stent of OM 2 Attending Provider: Nasir Granados Consulting Providers: Mike Scott Discharge Orders/Prescriptions Prescriptions: New aspirin 81 mg Tablet,Delayed Release (Dr/Ec) 81 mg PO DAILY@0800 Qty: 30 RF: 0 metoprolol tartrate 25 mg Tablet 12.5 mg PO BID Qty: 60 RF: 0 Brilinta 90 mg Tablet 90 mg PO BID Qty: 60 RF: 0 atorvastatin 40 mg tablet 40 mg PO QHS Qty: 30 RF: 0 Continued aripiprazole [Abilify] 2 mg tablet 2 mg PO DAILY RF: 0 paroxetine HCl [Paxil] 20 mg tablet 80 mg PO DAILY RF: 0 Referrals / Follow Up: Provider, Primary [Other] - See Referral Note (Please establish with PCP and follow-up in 1 to 2 weeks.) Tommie Swanson MD [STAFF PHYSICIAN] - See Referral Note (Call for follow up regarding factor V Leiden/anticoagulation.) Mike Scott MD [STAFF PHYSICIAN] - Within 2 Weeks (May see LOCOMOTIVE DRIVER/PA) Ti Arguello MD [STAFF PHYSICIAN] - Within 1 Month (Call for outpatient evaluation of upper extremity tremors.) Disposition Disposition (needs filled in before D/C Order can be placed): Home, Self Care Documented by User: Dr. Nasir Granados MD 02/25/21 13:49 Providers Date of Admission: 02/23/21 Reason For Visit: NSTEMI Medications at Discharge Home Medications aripiprazole [Abilify] 2 mg PO DAILY 02/23/21 paroxetine HCl [Paxil] 80 mg PO DAILY 02/23/21 aspirin 81 mg PO DAILY@0800 #30 tab 02/25/21 atorvastatin 40 mg PO QHS #30 tab 02/25/21 metoprolol tartrate 12.5 mg PO BID #60 tab 02/25/21 ticagrelor [Brilinta] 90 mg PO BID #60 tab 02/25/21 Hospital Course Summary of Care Provided Hospital Course: This patient was seen in conjunction with Ophelia NATARAJAN. I have independently interviewed and examined the patient and reviewed pertinent history, examination findings, laboratory and plan of management. I have reviewed the note and agree with the documented findings with the few additional points. In brief, patient is admitted for chest pain and work-up shows non-STEMI. EKG normal sinus rhythm with prolonged QTC. Patient also history of factor V Leiden and 3 times DVT but never followed any new car make ready mechanic after diagnosis in early 90s. Patient was taken to cardiac cath and was found to have restenosis of OM 2 for which he had PCI/stent by sales estimator Dr. Scott. Patient history of anxiety depression and concerned about tremors which seems action/kinetic tremor. Patient on aspirin, Brilinta, lisinopril and statin metoprolol. Patient is advised to follow with new car make ready mechanic in 2 weeks. Discussed with sales estimator and patient Brilinta can be changed to Plavix if new car make ready mechanic decided to put on Coumadin after 1 month of Brilinta. Rest of comorbidities as mentioned above. Discharge medication reconciliation done. Discharge follow-up instructions completed. Discharge process discussed with the patient and all questions were answered to patient's satisfaction. Total time spent, exact 35 minutes on discharge meds reconciliation, examination, coordination of care with nurses and ancillary staff, review of imaging and blood test and discussion with the patient on follow-up instructions I have discussed my assessment with Ophelia NATARAJAN and orders have been reviewed. Physical Exam Narrative General: Alert, Oriented x3, Cooperative HEENT: Atraumatic, PERRLA, EOMI, Normocephalic Oral: No Gingival or Mucosal Lesions/ Ulcerations Neck: Supple, No JVD, Negative Carotid Bruits Lungs: Air entry equal in bilateral lung bases. No crepitation/rhonchi Cardiovascular: Regular rate, Regular Rhythm, Normal S1, Normal S2, No murmurs Abdomen: Bowel Sounds Present, Soft, Non Tender, Non-Distended : No renal angle tenderness. No suprapubic tenderness. Extremities: Right radial wrist no hematoma. No edema, Capillary Refill Less than 3 Seconds Skin: No rashes, No breakdown Musculoskeletal: No Tenderness to Palpation of Joints or Extremities Neurological: Mild tremors, kinetic. Cranial nerves II-XII grossly intact, Deep Tendon Reflexes 2+/4 and Symmetrical, Neuro grossly intact Psych/Mental Status: Normal Affect, Appropriate. ABG / Lab / Microbiology Data Result Diagrams: 02/25/21 05:08 02/25/21 05:08 Discharge Plan Admission Admit Date/Time: 02/23/21 19:58 Primary Reason for Your Visit: Myocardial infarction, stent of OM 2 Attending Provider: Nasir Granados Consulting Providers: Mike Scott Discharge Orders/Prescriptions Prescriptions: New aspirin 81 mg Tablet,Delayed Release (Dr/Ec) 81 mg PO DAILY@0800 Qty: 30 RF: 0 metoprolol tartrate 25 mg Tablet 12.5 mg PO BID Qty: 60 RF: 0 Brilinta 90 mg Tablet 90 mg PO BID Qty: 60 RF: 0 atorvastatin 40 mg tablet 40 mg PO QHS Qty: 30 RF: 0 Continued aripiprazole [Abilify] 2 mg tablet 2 mg PO DAILY RF: 0 paroxetine HCl [Paxil] 20 mg tablet 80 mg PO DAILY RF: 0 Referrals / Follow Up: Provider, Primary [Other] - See Referral Note (Please establish with PCP and follow-up in 1 to 2 weeks.) Tommie Swanson MD [STAFF PHYSICIAN] - See Referral Note (Call for follow up regarding factor V Leiden/anticoagulation.) Mike Scott MD [STAFF PHYSICIAN] - Within 2 Weeks (May see LOCOMOTIVE DRIVER/PA) Ti Arguello MD [STAFF PHYSICIAN] - Within 1 Month (Call for outpatient evaluation of upper extremity tremors.) Disposition Disposition (needs filled in before D/C Order can be placed): Home, Self Care Charges/Coding Visit Charges Inpatient E&M: 26717 Disch Hosp [facility] Codes Addendum Addendum: Please change the code of progress note of 02/24/2021 to [id number]. Please delete the sentence from the progress note of 02/24. Patient was not discharged on 02/24 but on 02/25. Discharge medication reconciliation done. Discharge follow-up instructions completed. Discharge process discussed with the patient and all questions were answered to patient's satisfaction. Total time spent, exact 35 minutes on discharge meds reconciliation, examination, coordination of care with nurses and ancillary staff, review of imaging and blood test and discussion with the patient on follow-up instructions
--- NOTE | 2021-02-25 13:26 | CASEMGMT ---
Pt to be sent on Brilinta at discharge and med e-scribed to pharmacy. Pt states normally has no co-pays for prescriptions but pt provided with a Brilinta free month free card at this time. Pt/ voice no further questions/concerns/needs. Yonis ORTEGA CM
--- NOTE | 2021-02-25 13:57 | PN.CARD_ITS ---
Subjective Subjective Doing well. Denies any cardiac complaints. Objective Data Vital Signs: Vital Signs Temp Pulse Resp BP Pulse Ox 98.1 F 98 16 95/53 L 95 02/25/21 10:41 02/25/21 10:44 02/25/21 10:41 02/25/21 10:44 02/25/21 10:41 Oxygen Delivery Method Room Air Weight: 256 lb 2.834 oz Body Mass Index (BMI) 35.1 Intake & Output: Intake and Output for Last 24 Hours 02/23/21 02/24/21 02/25/21 23:59 23:59 23:59 Intake Total 3177.84 / 3417.84 1180 / 1180 Balance 3177.84 / 3417.84 1180 / 1180 Lab / Micro Data Result Diagrams: 02/25/21 05:08 02/25/21 05:08 Labs: Laboratory Results - last 24 hr 02/24/21 01:12: WBC 11.6 H, RBC 5.48, Hgb 16.4, Hct 47.9, MCV 87.4, MCH 29.9, MCHC 34.2, RDW Std Deviation 41.7, RDW Coeff of Essie 13.2, Plt Count 201, MPV 10.3 02/24/21 02:35: MCV 86.8, MCHC 34.2 02/24/21 14:45: Hemoglobin A1c 5.6 02/25/21 05:08: WBC 7.6, RBC 5.14, Hgb 15.4, Hct 46.9, MCV 91.2 D, MCH 30.0, MCHC 32.8, RDW Std Deviation 43.4, RDW Coeff of Essie 13.2, Plt Count 173, MPV 10.6 02/25/21 05:08: Sodium 133 L, Potassium 4.0, Chloride 106, Carbon Dioxide 20.0 L , Anion Gap 7, BUN 11, Creatinine 1.13, Estim Creat Clear Calc 87.75, Est GFR (MDRD) Af Amer 89, Est GFR (MDRD) Non-Af 74, BUN/Creatinine Ratio 9.7 L, Glucose 108 H, Calcium 8.2 L, Total Bilirubin 2.40 H, AST 133 H, ALT 62 H, Alkaline Phosphatase 97, Total Protein 6.8, Albumin 3.1 L, Globulin 3.7, Albumin/Globulin Ratio 0.8 L Cardiology Labs/Tests 02/24/21 01:12: WBC 11.6 H, RBC 5.48, Hgb 16.4, Hct 47.9, MCV 87.4, MCH 29.9, MCHC 34.2, Plt Count 201, MPV 10.3 02/24/21 02:35: MCV 86.8, MCHC 34.2 02/24/21 14:45: Hemoglobin A1c 5.6 02/25/21 05:08: WBC 7.6, RBC 5.14, Hgb 15.4, Hct 46.9, MCV 91.2 D, MCH 30.0, MCHC 32.8, Plt Count 173, MPV 10.6 02/25/21 05:08: Sodium 133 L, Potassium 4.0, Chloride 106, Carbon Dioxide 20.0 L , Anion Gap 7, BUN 11, Creatinine 1.13, Est GFR (MDRD) Af Amer 89, Est GFR (MDRD) Non-Af 74, BUN/Creatinine Ratio 9.7 L, Glucose 108 H, Calcium 8.2 L, Total Bilirubin 2.40 H Rhythm: EKG: ECHO: Stress Test: Cardiac Cath: PCI: CT Surgery: Holter monitor: EPS: PPM: CXR: Chest CT Scan: Radiography Diagnostic Testing: Radiology Impression Echocardiogram 02/23/21 19:58 Interpretation Summary The estimated ejection fraction is 55-60 %. No evidence for diastolic dysfunction. Mild-Moderate (1-2+) mitral valve insufficiency. Trivial aortic valve insufficiency. Ordering Physician: Kandy Fong Performed By: Sho Blount, RDCS, RVT Physical Exam Const alert and oriented x3 Orientation / Consciousness: awake HEENT normocephalic Eyes no scleral icterus Neck supple Chest inspection of chest normal Resp normal respiratory effort Cardio regular rate Extremity Peripheral Pulses: Yes radial pulses present right Skin no rashes or lesions noted Psych mental status grossly normal Assessment & Plan Assessment/Plan (1) NSTEMI (non-ST elevated myocardial infarction): PLAN: Status post PCI to OM 2. Continue current medications. Patient was advised to follow-up with heme-onc regarding his factor V [place]. If he requires anticoagulation then it will be reasonable to switch from Brilinta to Plavix and continue triple therapy for 1 month and after 1 month the aspirin can be stopped if patient can remain on Plavix and Coumadin or other anticoagulant as deemed fit by heme-onc. (2) History of coronary artery stent placement: PLAN: Continue management as above. (3) Atherosclerosis of coronary artery of [place] heart without angina pectoris: QUALIFIERS: Coronary Disease-Associated Artery/Lesion type: [place] artery Qualified Code(s): I25.10 - Atherosclerotic heart disease of [place] mary nary artery without angina pectoris Charges/Coding Visit Charges Inpatient E&M: 00221 Subs Hosp L2
--- NOTE | 2021-02-25 14:38 | CL.I_ITS ---
Patient Name: MARLENE IWLSON Study Date: 02/24/2021 Performing: Richar Scott MD Ht: 72 inches 183 cm : 1975 Wt: 256.1 lbs 116 kg Age: 46 Gender: male BSA: 2.37 PROCEDURE(S) PERFORMED ST67-QHB/COR BG42-HGM W OR WO PTCA, SINGLE CORONARY ARTERY CLINICAL PROFILE AND CO-MORBIDITIES Indications: ACS <= 24 hrs Heart Failure: None Stress/Imaging Stress/Image Study Performed: No CAD Presentations: Non-STEMI. Symptom onset Date/Time: 02/23/21 Time Not Available CONCLUSIONS CAD as described. Successful PCI to OM2 with LILIA RECOMMENDATIONS DESCRIPTION OF PROCEDURE The patient arrived to the procedure lab. The risks and benefits of the procedure as well as a full d escription of our services here and lack of surgical backup were fully explained to the patient and/o r their significant other prior to the catheterization. The Timeout was completed, verifying the thea ect patient and procedure. The patient's procedural site was prepped and draped in the usual fashion. Local anesthetic was given subcutaneously to right radial region with Lidocaine 2%. Using a modified Seldinger technique, arterial access was obtained via the right radial artery, a 6Fr sheath was inse rted.. Left Coronary Artery selective angiography was performed in multiple views using a 5 Fr. JL3. 5 catheter. Right Coronary Artery selective angiography was then performed in multiple views using a 5 Fr. JR 4 catheterThe images were reviewed and options discussed. A decision was then made to procee d with an Intervention, IVUS or other adjunct procedure. XB 3.0 Guide catheter was inserted and engaged into the LCA. BMW Guide wire was advanced to the 2 nd OM. Whisper Guide wire was inserted as a giovanni wire Priority One inserted Pass # 1 Priority One Re moved 2.0 x 12 Emerge Balloon catheter was inserted. Balloon catheter was advanced across lesion in t he second obtuse marginal, proximal PTCA balloon inflated at 6 atms for 10 secs. PTCA balloon inflate d at 6 atms for 6 secs. PTCA balloon inflated at 6 atms for 8 secs. PTCA balloon inflated at 6 atms f or 12 secs. Angiogram performed post balloon dilatation. Orsiro 2.5 x 9 Drug Eluting stent was insert ed. Drug Eluting stent was advanced across the lesion in the second obtuse marginal, proximal Angiogr am performed pre stent deployment. Angiogram performed post stent deployment. Angiogram performed pos t stent deployment. The arterial sheath was pulled and a TR Band was applied for hemostasis - 12cc air CORONARY ANGIOGRAPHY DOMINANCE: Right Dominant LEFT HEART ASSESSMENT Left Ventricular Ejection Fraction: by Echo 55 % LEFT MAIN: No significant disease noted LEFT ANTERIOR DESCENDING ARTERY: PROX LAD: 20 % Stenosis CIRCUMFLEX ARTERY: Mild luminal irregularities OM 1: Proximal - 50 % Stenosis OM 2: Proximal - 100 % Stenosis OM 3: Proximal - 50 % Stenosis RIGHT CORONARY ARTERY: PROX RCA: 30 % Stenosis INTERVENTION INFORMATION LESION SITE: 2nd OM (Proximal) Lesion Complexity: High/C, chronic total occlusion: No, lesion at bifurcation: No, thrombus present: Yes, lesion length: 8 mm, culprit lesion: Yes, Previously treated lesion: No Pre Stenosis: 100 % Pre intervention ANDI flow: 0 PROCEDURE: Thrombectomy, Drug Eluting Stent with pre dilatation. Post Stenosis: 0 % Post intervention ANDI flow: 3 Lesion Devices: Preston .014 BMW Warren Straight 190cm Cardinal 6 Fr XB3.0 100cm Guide Catheter Preston .014 HT Whisper MS Straight 190cm Chava Sci EMERGE MR 2.00x12 BALLOON Terumo Priority One Aspiration Catheter Biotronik Orsiro MR LILIA 2.5x9 COMPLICATIONS No Complications PROCEDURE MEDICATIONS Fentanyl 50 mcg IV Versed 1 mg IV Oxygen: 2 L/min via nasal cannula Brilinta 180 mg PO @ 02/24/2021 12:50:48 Heparin given IA 02/24/2021 12:09:12 Heparin 2000 unit(s) IV 02/24/2021 12:28:47 Nitro 200 mcg IC 02/24/2021 12:46:22 Verapamil 2.5mg, Ntg 100mcgs, 3000 units of Heparin given IA 02/24/2021 12:09:12 IV Bolus: .9 NaCl 300 ml total 02/24/2021 13:03:47 SUMMARY OF HEMODYNAMIC DATA Time AIR REST ECG 11:27:51 AO 124/97 (111) SA 12:12:22 Signed By Richar Scott MD On 02/25/2021 2:37:30 PM Richar Scott MD
== END 2021-02-25 15:23 | disposition home or self-care (01) | DRG 174 ==
PROVIDERS: Family Medicine; Nurse Practitioner Family; Specialist; Admitting Provider Internal Medicine; Visit Provider Internal Medicine
DX: I21.4 Non-ST elevation (NSTEMI) myocardial infarction (principal); F41.9 Anxiety disorder, unspecified; F32.9 Major depressive disorder, single episode, unspecified; I25.10 Atherosclerotic heart disease of native coronary artery without angina pectoris; D68.51 Activated protein C resistance; R73.9 Hyperglycemia, unspecified; R25.1 Tremor, unspecified; E66.9 Obesity, unspecified; Z86.718 Personal history of other venous thrombosis and embolism; Z79.899 Other long term (current) drug therapy; Z82.49 Family history of ischemic heart disease and other diseases of the circulatory system; Z68.35 Body mass index [BMI] 35.0-35.9, adult
CPT/HCPCS: 36415; 80053; 80061; 83036; 83735; 84484; 85025; 85027; 85730; 92928; 93005; 93306; 93454; 97802; 99152; 99153; 99251; C1757; C1874; J7030; Q9957; Q9967; A4216; C1725; C1769; C1887; C1894; C8929; C9600; G0463; J1327; J3490

== ENCOUNTER 2021-05-26 12:59 | Emergency (ER) | payer MEDICAID, SELFPAY ==
[2021-05-26 13:00] VITALS: BP 137/98; PULSE 78; RESP 16; TEMP 36.2; O2SAT 96; BMI 35.2
--- NOTE | 2021-05-26 13:20 | CM.ED ---
MISTI Note MISTI received call from Mariama Mitchell at [facility]. She reports that patient had called her and asked that she speak to his . Mckenna said that patient is overwhelmed and that the is very concerned. Patient, per Mariama, reports that he has intent to harm himself but no plan yet... but if I can't get the right help he will resort to it. Patient reported that he wakes up daily wishing he was for the last 2-3 months. Patient's reports that patient's health has decline and he is not able to clean well and she has concern about patient and his home as he is currently living in [facility] and thus she has taken him in. reports that patient has mood swings and personality switches and at times will be hostile or unapproachable. is concerned about patient and that he is depressed. Patient's said that previously patient had taken good care of himself and his appearance. Patient's said that patient is not being realistic as he has gone on some job interviews but has difficulty following through with getting hired. Patient's said that patient is also spending money that he doesn't have and he is not being realistic. Patient is linked with Guicho Cavazos at [facility]. Patient's , who she is from patient but they are friends, resides in [place] but feels comfortable with transporting patient to the ED. MISTI updated online communications manager. Plan: TO be determined Gladys JUAREZ
--- NOTE | 2021-05-26 14:30 | EKG12_ITS ---
Test Reason : WORK UP Blood Pressure : / mmHG Vent. Rate : 072 BPM Atrial Rate : 072 BPM P-R Int : 166 ms QRS Dur : 102 ms QT Int : 418 ms P-R-T Axes : 025 022 059 degrees QTc Int : 457 ms Normal sinus rhythm Inferior infarct , age undetermined, cannot be excluded Abnormal ECG Confirmed by LAI DIEGO, CLINT ([id number]), assistant production editor DEEDEE ROSALES ([id number]) on 05/27/2021 1:52:42 PM Referred By: MIGUELANGEL Confirmed By:CLINT HOYT MD
[2021-05-26 14:57] LABS: Absolute Lymphocyte Count 1.42 X10^3/uL (0.83-4.51); Basophil# 0.04 X10^3/uL; Basophil% 0.7 % (0-1); Eosinophil# 0.14 X10^3/uL; Eosinophils% 2.3 % (0-5); Hematocrit 47.2 % (40-54); Hemoglobin 16.5 g/dL (13.0-16.5); Lymphocyte # 1.42 X10^3/ul (0.83-4.51); Lymphocyte % 23.6 % (19-41); Mean Corpuscular Hgb 30.2 pg (27.0-32.0); Mean Corpuscular Volume 86.3 fL (80-94); Mean Platelet Vol. 10.3 fl (6.2-12.0); Monocyte# 0.42 X10^3/uL; NRBC Flagged by Analyzer 0 % (0-5); Neutrophil # 3.95 X10^3/uL (2.7-7.7); Neutrophil % 65.7 % (47-70); Platelet Count 194 K/mm3 (150-450); RBC Distribution Width CV 12.7 % (11.6-14.6); RBC Distribution Width SD 39.7 fl (35.1-43.9); Red Blood Count 5.47 M/mm3 (4.6-6.2)
[2021-05-26 15:06] VITALS: RESP 16
[2021-05-26 15:06] LABS: Anion Gap 7 (5-15); BUN 14 mg/dL (7-18); BUN/Creat Ratio 12.2 RATIO (10-20); Calcium,Total 8.5 mg/dL (8.5-10.1); Chloride 107 mmol/L (98-107); Creatinine, Serum 1.15 mg/dL (0.70-1.30); EST Glomerular Filtration Rate 72 mL/min (>60); Est Glom Filt Rate - Afr Amer 87 mL/min (>60); Estimated Creatinine Clearance 86.22 ml/min; Glucose 121 mg/dL (74-106); Potassium 3.6 mmol/L (3.5-5.1); Sodium Level 138 mmol/L (136-145)
[2021-05-26 15:09] LABS: Acetaminophen (Tylenol) Level < 2.0 ug/mL (10.0-30.0); Salicylate < 1.7 mg/dL (2.8-20.0)
--- NOTE | 2021-05-26 15:23 | CT_ITS ---
STUDY: CT BRAIN WITHOUT CONTRAST REASON FOR EXAM: Male, 46 years old. Hallucinations RADIATION DOSAGE (If Supplied By Facility): CTDIvol = ( 44.99 ) mGy, DLP = ( 812.98 ) mGycm TECHNIQUE: Transaxial CT imaging of the brain was performed without administration of intravenous contrast material. Individualized dose optimization techniques were used for this CT. COMPARISON: No relevant priors. FINDINGS: Normal soft tissue structures. Normal calvarium. Normal size ventricles and extra-axial spaces for the patient''s age. Normal white matter tracts of the cerebral hemispheres. Normal basal ganglia and thalami. Normal brainstem. Normal cerebellum. There is no intracranial hemorrhage. There are no findings of an acute ischemic infarction. Normal visualized paranasal sinuses. CT/Brain/Head without Contrast IMPRESSION: Normal unenhanced CT scan of the brain. Electronically Signed: Jacek Altamirano MD at 15:43 EDT , Service support ,
--- NOTE | 2021-05-26 15:26 | EDS_ITS ---
HPI History of Present Illness Chief Complaint: Suicidal Narrative Narrative: Patient is a 46-year-old male who states that he has been feeling depressed and anxious for quite some time and has been seeing a counselor and psychiatrist. He states he is been on multiple medications and they do not seem to be improving his symptoms and he also reports that no one's been able to find the root cause of his symptoms. He states that he is to the point where he wishes he does not wake up every night when he falls asleep and is now contemplating suicide. He denies any direct plan but states that he would most likely overdose on his normal medications. He denies any previous suicide a ttempt or psychiatric admission but with the worsening symptoms comes in for evaluation [facility] Medical History Anxiety Atherosclerosis of coronary artery of [place] heart without angina pectoris Depression DVT (deep venous thrombosis) Factor 5 Leiden mutation, heterozygous NSTEMI (non-ST elevated myocardial infarction) Home Medications aripiprazole [Abilify] 2 mg PO DAILY 02/23/21 [History Last Taken 02/22/21] paroxetine HCl [Paxil] 80 mg PO DAILY 02/23/21 [History Last Taken 02/22/21] aspirin 81 mg PO DAILY@0800 #30 tab 02/25/21 [Rx Last Taken Unknown] atorvastatin 40 mg PO QHS #30 tab 02/25/21 [Rx Last Taken Unknown] metoprolol tartrate 12.5 mg PO BID #60 tab 02/25/21 [Rx Last Taken Unknown] apixaban 5 mg tablet 5 mg PO BID #60 tab 03/15/21 [Rx Last Taken Unknown] clopidogrel 75 mg tablet 75 mg PO QDAY #90 tab 04/06/21 [Rx Last Taken Unknown] lorazepam 0.5 mg PO DAILY PRN 05/26/21 [History Last Taken Unknown] Allergy/AdvReac Type Severity Reaction Status Date / Time Penicillins Allergy Anaphylaxis Verified 05/26/21 13:13 Family History Grandfather Factor 5 Leiden mutation, heterozygous Hypertension Heart disease Sister Diabetes Mother Hypertension Father Unknown family medical history Other Bleeding disorder Surgical History (Reviewed 03/15/21 @ 10:39 by Zenon H Roof [employer], [employer]PER[employer]-C) H/O knee surgery History of coronary artery stent placement (02/24/21) Social History Smoking Status: Never smoker alcohol intake: current alcohol intake frequency: holidays/special occasions only substance use type: does not use ROS ROS ED Constitutional Constitutional ED: Denies chills or fever(s) ENT ENT ED: Denies sore throat Cardiovascular Cardiovascular: Denies chest pain Respiratory/Chest Respiratory/Chest: Denies cough or dyspnea Gastrointestinal Gastrointestinal: Denies abdominal pain, diarrhea, nausea or vomiting Genitourinary Genitourinary ED: Denies dysuria Musculoskeletal Musculoskeletal: Denies myalgias Integumentary Denies rash Neurologic Neurologic: Denies headache(s) Psychiatric Psychiatric: Reports anxiety, auditory hallucinations, behavioral changes, depression, mood swings, suicidal ideation and suicidal thoughts Hematologic/Lymphatic Hematologic/Lymphatic: Reports easy bleeding and easy bruising EXAM Physical Exam Const Vital Signs: 05/26/21 13:00 05/26/21 15:06 05/26/21 16:11 Temperature 97.1 F L Temperature Source Temporal Pulse Rate 78 69 Respiratory Rate 16 16 16 Blood Pressure 137/98 H 126/84 H Blood Pressure Mean 111 98 Pulse Ox 96 94 Oxygen Delivery Method Room Air Room Air Positive well nourished and well developed General Appearance ED: well developed HEENT Reports moist mucous membranes Eyes PERRL and EOMs intact bilaterally Neck supple Resp normal respiratory effort and clear to auscultation bilaterally Cardio regular rate and regular rhythm GI non-tender and non-distended Auscultation: normoactive bowel sounds Palpation: soft Extremity normal to inspection, full ROM, normal capillary refill, no joint enlargement and no clubbing, cyanosis or edema Neuro oriented x3 and CN's II-XII intact bilaterally Sensorium / Orientation: alert Psych Psych Narrative: Patient has depression with suicidal ideation he also reports to auditory hallucinations Skin no rashes or lesions noted MDM MDM MDM Narrative Medical decision making narrative: Patient presented to the ER and in no acute distress but reported worsening depression leading to suicidal ideation. Based on this complaint a medical clearance exam was performed and as he reported some auditory hallucinations a CT scan was ordered. Lab work and images revealed no acute findings. Social work also evaluated the patient and agreed that based on his worsening symptoms placement would be appropriate for him. At this time patient has been accepted to [facility] and he has been accepted by Dr. Regan. The patient is medically cleared and is safe for transfer/placement in a psychiatric facility at this time Lab Data Attestation: I reviewed the patient's lab results. Labs: Laboratory Results - last 24 hr 05/26/21 05/26/21 05/26/21 13:46 13:46 13:46 WBC 6.0 RBC 5.47 Hgb 16.5 Hct 47.2 MCV 86.3 MCH 30.2 MCHC 35.0 RDW Std Deviation 39.7 RDW Coeff of Essie 12.7 Plt Count 194 MPV 10.3 Immature Gran % (Auto) 0.700 Neut % (Auto) 65.7 Lymph % (Auto) 23.6 [place] % (Auto) 7.0 Eos % (Auto) 2.3 Baso % (Auto) 0.7 Absolute Neuts (auto) 4.0 Absolute Lymphs (auto) 1.42 Nucleated RBC % 0 Sodium 138 Potassium 3.6 Chloride 107 Carbon Dioxide 24.0 Anion Gap 7 BUN 14 Creatinine 1.15 Estim Creat Clear Calc 86.22 Est GFR (MDRD) Af Amer 87 Est GFR (MDRD) Non-Af 72 BUN/Creatinine Ratio 12.2 Glucose 121 H Calcium 8.5 Urine Color Urine Clarity Urine pH Ur Specific [place] Urine Protein Urine Glucose (UA) Urine Ketones Urine Occult Blood Urine Nitrite Urine Bilirubin Urine Urobilinogen Ur Leukocyte Esterase Urine RBC Urine WBC Ur Squamous Epith Cells Urine Bacteria Urine Mucus Salicylates < 1.7 L Urine Opiates Screen Urine Methadone Screen Acetaminophen < 2.0 L Ur Barbiturates Screen Ur Phencyclidine Scrn Ur Amphetamines Screen U Methamphetamin-MDMA U Benzodiazepines Scrn Urine Cocaine Screen U Cannabinoids Screen Ur Drug Screen Comment Ethyl Alcohol 14.0 05/26/21 05/26/21 15:21 15:21 WBC RBC Hgb Hct MCV MCH MCHC RDW Std Deviation RDW Coeff of Essie Plt Count MPV Immature Gran % (Auto) Neut % (Auto) Lymph % (Auto) [place] % (Auto) Eos % (Auto) Baso % (Auto) Absolute Neuts (auto) Absolute Lymphs (auto) Nucleated RBC % Sodium Potassium Chloride Carbon Dioxide Anion Gap BUN Creatinine Estim Creat Clear Calc Est GFR (MDRD) Af Amer Est GFR (MDRD) Non-Af BUN/Creatinine Ratio Glucose Calcium Urine Color Yellow Urine Clarity Sl. Cloudy Urine pH 6.5 Ur Specific [place] 1.010 Urine Protein 15 H Urine Glucose (UA) Normal Urine Ketones Negative Urine Occult Blood Negative Urine Nitrite Negative Urine Bilirubin Negative Urine Urobilinogen Normal Ur Leukocyte Esterase 100 H Urine RBC 0 SEEN Urine WBC 10-25 SEEN Ur Squamous Epith Cells 0-5 SEEN Urine Bacteria 1+ Urine Mucus 0 SEEN Salicylates Urine Opiates Screen NEGATIVE Urine Methadone Screen NEGATIVE Acetaminophen Ur Barbiturates Screen NEGATIVE Ur Phencyclidine Scrn NEGATIVE Ur Amphetamines Screen NEGATIVE U Methamphetamin-MDMA NEGATIVE U Benzodiazepines Scrn NEGATIVE Urine Cocaine Screen NEGATIVE U Cannabinoids Screen NEGATIVE Ur Drug Screen Comment Ethyl Alcohol Radiography Diagnostic Testing: Clinical Impression(s) from Imaging Studies Brain CT 05/26/21 15:23 IMPRESSION: Normal unenhanced CT scan of the brain. Electronically Signed: Jacek Altamirano MD at 15:43 EDT , Service support , Discharge Plan Triage Chief Complaint: Suicidal ED Provider: John Baeza Dx/Rx/DC Orders Clinical Impression: Depression with suicidal ideation Prescriptions: No Action Eliquis 5 mg tablet 5 mg PO BID Qty: 60 RF: 11 aripiprazole [Abilify] 2 mg tablet 2 mg PO DAILY RF: 0 paroxetine HCl [Paxil] 20 mg tablet 80 mg PO DAILY RF: 0 aspirin 81 mg Tablet,Delayed Release (Dr/Ec) 81 mg PO DAILY@0800 Qty: 30 RF: 0 metoprolol tartrate 25 mg Tablet 12.5 mg PO BID Qty: 60 RF: 0 atorvastatin 40 mg tablet 40 mg PO QHS Qty: 30 RF: 0 lorazepam 0.5 mg tablet 0.5 mg PO DAILY PRN (Reason: Anxiety) RF: 0 clopidogrel [Plavix] 75 mg tablet 75 mg PO QDAY Qty: 90 RF: 3 Primary Care Provider: Hannah Meier Referrals: Hannah Meier, [Primary Care Provider] - Disposition Disposition: Psychiatric Hospital or Unit [facility]
[2021-05-26 15:31] LABS: Mucous, Urine 0 SEEN /hpf (<or=2+); Red Blood Cells-Urine 0 SEEN /hpf (0-5)
[2021-05-26 15:38] LABS: Color, Urine Yellow (Yellow); Glucose, Dipstick Normal (Normal); Ketone-Dipstick Negative (Negative); Leukocyte Esterase-Dipstick 100 /ul (Negative); Nitrite-Dipstick Negative (Negative); Occult Blood-Urine Negative /ul (Negative); Protein-Dipstick 15 mg/dl (Negative); Urine Bilirubin Dipstick Negative (Negative); Urine Clarity Sl. Cloudy (Clear); Urine Urobilinogen Normal (Normal); Urine pH 6.5 (5.0 - 8.0)
[2021-05-26 15:53] LABS: Bacteria 1+ /hpf (None Seen); Squamous Epithelial Cells - UA 0-5 SEEN /hpf (0-5); White Blood Cells 10-25 SEEN /hpf (0-5)
[2021-05-26 16:11] VITALS: BP 126/84; PULSE 69; RESP 16; O2SAT 94
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
[2021-05-26 16:21] LABS: Amphetamine Urine VISTA NEGATIVE (<1000 ng/mL); Barbiturate Urine VISTA NEGATIVE (< 200 ng/mL); Benzodiazepine Urine VISTA NEGATIVE (< 200 ng/mL); Cocaine Urine VISTA NEGATIVE (< 300 ng/mL); Ecstacy Urine VISTA NEGATIVE (< 500 ng/mL); Methadone Urine VISTA NEGATIVE (< 300 ng/mL); PCP Urine VISTA NEGATIVE (< 25 ng/mL); THC Urine VISTA NEGATIVE (< 50 ng/mL); Vista UDS pH Range 7
--- NOTE | 2021-05-26 18:37 | CM.ED ---
SW Note MISTI called [facility] and made referral. MISTI faxed referral to [place]. MISTI received call from [facility]. Patient has been accepted to [facility] Adult Behavioral Unit. Accepting MD is Kim. Patient was updated regarding plan for discharge to [facility]. MD and RN updated of planned discharge. [place] to make arrangements for discharge transportation. MISTI updated Chantel from [facility] that patient, who is a patient from [facility], was admitted to [facility]. Plan: [facility] Gladys JUAREZ
--- NOTE | 2021-05-26 22:21 | CM.ED ---
MISTI Note MISTI received called from Daylin at [facility] ( ). She inquired to status of the patient and stated report should be called prior to discharge. MISTI advised that this principal technical writer is waiting on transport for patient and patient has not left the ED. MISTI updated RN and still tender and stated that hospital is waiting for transport. Plan: [facility]. Transport has been arranged. Gladys JUAREZ
[2021-05-27 01:14] VITALS: BP 144/84; PULSE 70; RESP 16; O2SAT 99
--- NOTE | 2021-05-27 01:43 | ED.RN ---
CALLED PHYSICIANS AND THEY SAID IT WOULD BE ANOTHER HOUR AND A HALF FOR A RIDE THE CREW WAS LEAVING [place]
[2021-05-27 02:27] VITALS: RESP 16
[2021-05-27 03:11] VITALS: RESP 16
== END 2021-05-27 03:20 ==
PROVIDERS: Emergency Provider Emergency Medicine
DX: F32.A Depression, unspecified (principal); R45.851 Suicidal ideations; I25.10 Atherosclerotic heart disease of native coronary artery without angina pectoris; I25.2 Old myocardial infarction; F41.9 Anxiety disorder, unspecified; Z86.718 Personal history of other venous thrombosis and embolism; Z79.01 Long term (current) use of anticoagulants; Z79.82 Long term (current) use of aspirin; Z79.899 Other long term (current) drug therapy
CPT/HCPCS: 36415; 70450; 80048; 80307; 80329; 81001; 82077; 85025; 87426; 93005; 99285; G0480

== ENCOUNTER 2021-12-01 12:47 | Inpatient (IN) | payer MEDICAID, SELFPAY ==
[2021-12-01] VITALS (9 sets, daily range): BP systolic 94–137; BP diastolic 70–88; PULSE 71–86; RESP 12–18; TEMP 36.6–36.7; O2SAT 93–100; BMI 37.5
--- NOTE | 2021-12-01 12:48 | EKG12_ITS ---
Test Reason : AM EKG Blood Pressure : / mmHG Vent. Rate : 069 BPM Atrial Rate : 069 BPM P-R Int : 168 ms QRS Dur : 100 ms QT Int : 442 ms P-R-T Axes : 017 039 053 degrees QTc Int : 473 ms Normal sinus rhythm Normal ECG When compared with ECG of 29-NOV-2021 19:43, MANUAL COMPARISON REQUIRED, DATA IS UNCONFIRMED Confirmed by VANE DIEGO, KAILA ([id number]), newspaper copy editor DEEDEE ROSALES ([id number]) on 12/05/2021 1:56:54 PM Referred By: OPAL Confirmed By:KAILA CIFUENTES MD
--- NOTE | 2021-12-01 12:53 | ECHOD_ITS ---
Reason For Study: CHEST PAIN Procedure This was a 2D Doppler, Color Flow transthoracic echocardiogram. Exam performed portable in patient room. Left Ventricle Normal LV size. The estimated ejection fraction is 55-60 %. Normal diastology for age. No regional wall motion abnormalities noted. Right Ventricle Normal RV size. Normal systolic function. Atria Normal left atrium. Normal right atrium. No doppler evidence for ASD. Mitral Valve There is no mitral valve stenosis. Trivial mitral valve insufficiency. Tricuspid Valve There is no tricuspid stenosis. Unable to estimate RV systolic pressure due to inadequate jet, pulmonary artery pressure probably normal. Aortic Valve Trisinus/trileaflet aortic valve. There is no aortic stenosis. No aortic valve insufficiency. Pulmonic Valve There is no pulmonic valvular stenosis. No pulmonic valve insufficiency. Great Vessels Normal aortic root. Pericardium/Pleural No pericardial effusion. MMode/2D Measurements & Calculations LVIDd: 4.1 cm IVSd: 1.1 cm Ao root diam: 3.4 cm LVIDs: 2.8 cm LVPWd: 0.95 cm RVDd: 3.7 cm FS: 30.8 % LAV(MOD-bp): 44.4 ml LVAd ap4: 29.3 cm2 SV(MOD-sp4): 50.3 ml LAV(MOD-bp) Indexed: 18.2 ml/m2 LVLd ap4: 8.2 cm LAV(MOD-sp2): 42.6 ml EDV(MOD-sp4): 84.7 ml LAV(MOD-sp4): 43.1 ml EDV(sp4-el): 89.1 ml LVAs ap4: 16.9 cm2 LVLs ap4: 6.8 cm ESV(MOD-sp4): 34.4 ml ESV(sp4-el): 35.6 ml EF(MOD-sp4): 59.3 % EF(sp4-el): 60.0 % SV(sp4-el): 53.5 ml LA A4 area: 17.3 cm2 LA dimension(2D): 3.8 cm RA A4 area: 15.4 cm2 Time Measurements MV dec time: 0.24 sec Doppler Measurements & Calculations MV E max eddie: 71.1 cm/sec Lat Peak E' Eddie: 8.3 cm/sec Med Peak E' Eddie: 8.1 cm/sec MV A max eddie: 80.0 cm/sec E/E' lat: 8.6 E/E' med: 8.7 MV E/A: 0.89 Ao V2 max: 101.0 cm/sec LV V1 max: 94.8 cm/sec Ao max P.1 mmHg LV V1 max P.6 mmHg ECHO/Echo Complete Interpretation Summary The estimated ejection fraction is 55-60 %. Normal diastology for age. Trivial mitral valve insufficiency. Ordering Physician: Loco Palencia Referring Physician: AYDIN MAHER Performed By: Kaia Tripp RDCS
--- NOTE | 2021-12-01 12:59 | PCM.HP.STD ---
HPI - General General Date of Admission: 12/01/21 Date of Service: 12/01/21 Chief Complaint: Chest pain HPI Narrative MARLENE WILSON, is a 46 M with significant past medical history including coronary artery disease with history of non-STEMI for which he underwent PCI with LILIA 200% occluded OM 2 lesion on 02/24/2021, history of factor V Leyden mutation with previous blood clot who presented with chest pain. Per patient symptoms started the day prior to coming in. He felt this discomfort is located on the left upper chest which later radiated across his chest which he described as someone squeezing him with a belt. He was initially seen and evaluated at [facility] and given his significant past cardiac history and his previous care at [facility] he was transferred for subsequent care. Patient on further questioning did admit to some shortness of breath. Denied any nausea no vomiting denied any lightheadedness. Initial EKG obtained demonstrated features consistent with old inferior infarct. Initial cardiac enzymes came back negative. [facility] Medical History Anxiety Atherosclerosis of coronary artery of [place] heart without angina pectoris Depression DVT (deep venous thrombosis) Factor 5 Leiden mutation, heterozygous NSTEMI (non-ST elevated myocardial infarction) Home Medications aripiprazole [Abilify] 15 mg PO DAILY 02/23/21 [History Last Taken 02/22/21] paroxetine HCl [Paxil] 80 mg PO DAILY 02/23/21 [History Last Taken 02/22/21] apixaban 5 mg tablet 5 mg PO BID #60 tab 03/15/21 [Rx Last Taken Unknown] clopidogrel 75 mg tablet 75 mg PO QDAY #90 tab 04/06/21 [Rx Last Taken Unknown] lorazepam 0.5 mg PO BID PRN PRN 05/26/21 [History Last Taken Unknown] atorvastatin 40 mg tablet 40 mg PO QHS #90 tab 08/02/21 [Rx Last Taken Unknown] metoprolol tartrate 25 mg tablet 12.5 mg PO BID #90 tab 08/02/21 [Rx Last Taken Unknown] Allergy/AdvReac Type Severity Reaction Status Date / Time Penicillins Allergy Anaphylaxis Verified 05/26/21 13:13 Family History Grandfather Factor 5 Leiden mutation, heterozygous Hypertension Heart disease Sister Diabetes Mother Hypertension Father Unknown family medical history Other Bleeding disorder Surgical History H/O knee surgery History of coronary artery stent placement (02/24/21) Social History Smoking Status: Never smoker alcohol intake: current alcohol intake frequency: holidays/special occasions only substance use type: does not use Prior Cardiac Testing/Procedures Prior Cardiac Testing/Procedures: Stenting ROS ROS Narrative GENERAL: denies fever, chills, night sweats, HEENT: denies headache, sinus congestion, RESPIRATORY: shortness of breath, CARDIAC: chest pain, GASTROINTESTINAL: denies abdominal pain, nausea, GENITOURINARY: denies dysuria, urgency, frequency, EXTREMITY: denies swelling MUSCULOSKELETAL: denies current joint pain or tenderness NEUROLOGIC: denies focal numbness, weakness, tingling HEMATOLOGIC: denies easy bruising and/or hemorrhage INTEGUMENT: denies rashes PSYCHIATRIC: denies suicidal or homicidal ideation Vital Signs Vital Signs Vital Signs: 12/01/21 12:10 Temperature 97.9 F Temperature Source Oral Pulse Rate 71 Respiratory Rate 18 Blood Pressure 137/88 H Blood Pressure Mean 104 Blood Pressure Source Monitor Blood Pressure Position Semi-Fowlers Blood Pressure Location Right Forearm Pulse Ox 100 Oxygen Delivery Method Room Air Weight Weight: 125.8 kg Body Mass Index (BMI) 37.5 Physical Exam Narrative GENERAL: cooperative HEENT: Atraumatic; EYES; Anicteric, Normal Conjunctiva NECK; supple, normal thyroid, RESPIRATORY: Diminished to auscultation CARDIOVASCULAR: Regular S1 S2, GI: soft, normoactive bowel sounds, : No Renal angle tenderness; EXTREMITIES: No edema, no clubbing, MUSCULOSKELETAL: no muscle wasting NEURO: Awake; no lateralizing signs. SKIN: No Rash PSYCH; Flat affect Assessment & Plan Assessment/Plan (1) Chest pain: (2) Chest pain: QUALIFIERS: Chest pain type: unspecified Qualified Code(s): R07.9 - Chest pain, unspecified PLAN: Patient is a 46-year-old gentleman with significant past cardiac history presenting with chest pain 1. Chest pain ? Consistent with unstable angina. Patient has history of non-STEMI for which left heart catheterization revealed 100% occlusion of OM 2 lesion that was treated with thrombectomy and drug-eluting stent placement on 02/24/2021. Patient presented with typical symptoms. Patient has been placed on a monitored bed started on heparin in addition to beta-blockers as well as continuation of his antiplatelet therapy with Plavix. Patient is on apixaban held. Ordered 2D echo and consultation placed to cardiology Case discussed with Dr. Scott 2. Coronary artery disease ? With previous PCI with LILIA to OM2 lesion 3. Hypercoagulable status?factor V Leyden mutation ? With previous blood clots patient is on apixaban currently being held 4. Hypertension - Blood pressure controlled, home medications continued with dose adjustment as needed 5. Dyslipidemia -Patient is on statin therapy, continued at home dose 6. Class II obesity with BMI of 37.6 ? Weight loss advised 7. Depression with anxiety ? Patient is on paroxetine did continue 8. DVT prophylaxis ? Patient is on systemic anticoagulation with heparin Charges/Coding Visit Charges Inpatient E&M: 29988 Init Hosp L3
[2021-12-01] MEDS: 0.9% Normal Saline 1,000 ML 75 ML IV (13:16)
[2021-12-01] MEDS: Nitroglycerin (INPATIENT USE) 0.4 MG TAB.SUBL SL (13:22)
[2021-12-01] MEDS: oxyCODONE 5 MG Tablet 10 MG PO (14:36)
[2021-12-01] MEDS: Furosemide 40 MG/4 ML Vial IV ×2 (14:36→17:29)
[2021-12-01 14:44] LABS: Absolute Lymphocyte Count 1.24 X10^3/uL (0.83-4.51); Absolute Neutrophil Count 3.2 X10^3/uL (2.0-7.7); Basophil# 0.02 X10^3/uL; Basophil% 0.4 % (0-1); Eosinophil# 0.11 X10^3/uL; Eosinophils% 2.2 % (0-5); Hematocrit 41.9 % (40-54); Hemoglobin 14.7 g/dL (13.0-16.5); Lymphocyte # 1.24 X10^3/ul (0.83-4.51); Lymphocyte % 24.8 % (19-41); Mean Corp Hgb Conc 35.1 g/dL (32-36); Mean Corpuscular Hgb 30.4 pg (27.0-32.0); Mean Corpuscular Volume 86.6 fL (80-94); Mean Platelet Vol. 10.7 fl (6.2-12.0); Monocyte# 0.43 X10^3/uL; Monocyte% 8.6 % (0-10); NRBC Flagged by Analyzer 0 % (0-5); Neutrophil # 3.16 X10^3/uL (2.7-7.7); Neutrophil % 63.2 % (47-70); Platelet Count 171 K/mm3 (150-450); RBC Distribution Width SD 40.6 fl (35.1-43.9); Red Blood Count 4.84 M/mm3 (4.6-6.2)
[2021-12-01] MEDS: Clopidogrel Bisulfate 75 MG Tablet PO (14:44)
--- NOTE | 2021-12-01 14:53 | CON.PCM.CA_ITS ---
Assessment & Plan Assessment/Plan (1) Chest pain: QUALIFIERS: Chest pain type: unspecified Qualified Code(s): R07.9 - Chest pain, unspecified PLAN: Agree with getting more sets of troponin to rule out [place]. Apparently D-dimer was negative at [place] but I did not see the lab result. It will be reasonable to repeat the D-dimer with the next blood draw when he gets his troponin tested. While he has only trace edema and there is no evidence of overt pulmonary edema his symptoms are suggestive of volume overload. I agree with checking a 2D echo. It will be reasonable to give him 1 or 2 doses of IV Lasix. He took his last dose of Eliquis last night. Discussed stress testing versus cardiac cath with the patient. We will proceed with cardiac cath tomorrow. Agree with holding his Eliquis and starting him on heparin drip. HPI Consult Data Date of Consult: 12/01/21 HPI Narrative HPI Narrative: MARLENE WILSON, is a 46 M who presents with chest pain and shortness of breath. Patient went to [place] emergency room and had initial work-up there. His D-dimer, troponin and EKG were unremarkable. He was continued to have chest pain and was transferred to [facility]. Patient also states that he has been having shortness of breath that has been going on for the last 2 weeks and over the last 2 days has been more severe. He describes orthopnea and PND symptoms. He states that he had significant lower extremity edema as well. It does not appear that he was given Lasix at [place] but patient states that his lower extremity edema has come down compared to yes terday. The chest pain is dull, retrosternal. He received nitroglycerin which decreased his chest discomfort to some extent. At the time of his [place] last January he had burning retrosternal chest discomfort radiating to the left arm. Patient is not the best historian and initially was said that the chest pain that he is having currently was different from what he had at the time of his [place] but later felt that some aspects of his chest pain are similar to what he had last year. He was first evaluated in the hospital in January 2021 after presenting with chest pain/burning sensation that radiate to his left arm and diagnosed with non-ST elevated myocardial infarction. He underwent coronary angiography which revealed 100% occlusion of OM 2 that was treated with thrombectomy and drug- eluting stent placement. He underwent an echocardiogram on 02/23/2021 that showed ejection fraction 55-60% and mild to moderate mitral valve insufficiency with trivial aortic valve insufficiency. He also has a history of factor V Leiden deficiency with multiple episodes of DVTs. Review of systems: All systems reviewed. All else is negative except as in HPI [facility] Medical History Anxiety Atherosclerosis of coronary artery of [place] heart without angina pectoris Depression DVT (deep venous thrombosis) Factor 5 Leiden mutation, heterozygous NSTEMI (non-ST elevated myocardial infarction) Home Medications aripiprazole [Abilify] 15 mg PO DAILY 02/23/21 [History Last Taken 02/22/21] paroxetine HCl [Paxil] 80 mg PO DAILY 02/23/21 [History Last Taken 02/22/21] apixaban 5 mg tablet 5 mg PO BID #60 tab 03/15/21 [Rx Last Taken Unknown] clopidogrel 75 mg tablet 75 mg PO QDAY #90 tab 04/06/21 [Rx Last Taken Unknown] lorazepam 0.5 mg PO BID PRN PRN 05/26/21 [History Last Taken Unknown] atorvastatin 40 mg tablet 40 mg PO QHS #90 tab 08/02/21 [Rx Last Taken Unknown] metoprolol tartrate 25 mg tablet 12.5 mg PO BID #90 tab 08/02/21 [Rx Last Taken Unknown] Allergy/AdvReac Type Severity Reaction Status Date / Time Penicillins Allergy Anaphylaxis Verified 05/26/21 13:13 Family History Grandfather Factor 5 Leiden mutation, heterozygous Hypertension Heart disease Sister Diabetes Mother Hypertension Father Unknown family medical history Other Bleeding disorder Surgical History H/O knee surgery History of coronary artery stent placement (02/24/21) Social History Smoking Status: Never smoker alcohol intake: current alcohol intake frequency: holidays/special occasions only substance use type: does not use Physical Exam Const alert and oriented x3 Orientation / Consciousness: awake HEENT normocephalic Eyes no scleral icterus Resp normal respiratory effort and clear to auscultation bilaterally Cardio regular rate and regular rhythm Extremity General Extremity: edema bilateral lower extremity Details: trace Risk Stratification Risk Stratification Applicable: No Charges/Coding Visit Charges Inpatient E&M: 21361 Init Hosp L2 Objective Data Vital Signs: Vital Signs Temp Pulse Resp BP Pulse Ox 97.9 F 74 18 94/70 100 12/01/21 12:10 12/01/21 13:22 12/01/21 12:10 12/01/21 13:39 12/01/21 12:10 Oxygen Delivery Method Room Air Weight: 277 lb 5.464 oz Body Mass Index (BMI) 37.5 Intake & Output: Intake and Output for Last 24 Hours 11/29/21 11/30/21 12/01/21 23:59 23:59 23:59 Intake Total 81.25 / 81.25 Balance 81.25 / 81.25 Lab / Micro Data Result Diagrams: 12/01/21 14:35 Labs: Laboratory Results - last 24 hr 12/01/21 14:35: WBC 5.0, RBC 4.84, Hgb 14.7, Hct 41.9, MCV 86.6, MCH 30.4, MCHC 35.1, RDW Std Deviation 40.6, RDW Coeff of Essie 13.0, Plt Count 171, MPV 10.7, Immature Gran % (Auto) 0.800, Neut % (Auto) 63.2, Lymph % (Auto) 24.8, [place] % (Auto) 8.6, Eos % (Auto) 2.2, Baso % (Auto) 0.4, Absolute Neuts (auto) 3.2, Absolute Lymphs (auto) 1.24, Nucleated RBC % 0 Cardiology Labs/Tests 12/01/21 14:35: WBC 5.0, RBC 4.84, Hgb 14.7, Hct 41.9, MCV 86.6, MCH 30.4, MCHC 35.1, Plt Count 171, MPV 10.7, Immature Gran % (Auto) 0.800, Neut % (Auto) 63.2, Lymph % (Auto) 24.8, [place] % (Auto) 8.6, Eos % (Auto) 2.2, Baso % (Auto) 0.4, Absolute Neuts (auto) 3.2, Nucleated RBC % 0 Rhythm: EKG: ECHO: Stress Test: Cardiac Cath: PCI: CT Surgery: Holter monitor: EPS: PPM: CXR: Chest CT Scan:
[2021-12-01 14:56] LABS: Partial Thromboplast Time 24.6 Seconds (24.1-36.2); Prothrombin Time (Protime)PT. 12.5 SECONDS (11.7-14.9)
[2021-12-01 15:06] LABS: Troponin-I HS 6 pg/mL (3.0-78.0)
[2021-12-01 16:26] LABS: D-Dimer Quantitative (DVT/PE) 0.68 FEU/ug/m (0.27-0.49)
[2021-12-01] MEDS: Heparin Injection (Vial) 5,000 UNIT/ML VIAL 9500 UNIT SC (16:31)
[2021-12-01 17:00] LABS: Troponin-I HS 8 pg/mL (3.0-78.0)
--- NOTE | 2021-12-01 17:21 | CT_ITS ---
STUDY: CTA CHEST REASON FOR EXAM: Male, 46 years old. Elevated d-dimer. Hypertension and chest pain. RADIATION DOSAGE (If Supplied By Facility): CTDIvol = ( 14.50 ) mGy, DLP = ( 542.78 ) mGycm TECHNIQUE: The examination was performed with the intravenous administration of IV 100mL Isovue-370. Post-processing of the angiographic images was performed, with multiplanar reformation and 3D reconstruction. Individualized dose optimization techniques were used for this CT. COMPARISON: Chest, 12/01/2021. FINDINGS: Normal enhancement of the main pulmonary artery and right and left pulmonary arteries. Normal enhancement of the bilateral peripheral pulmonary arteries. There is no demonstrated pulmonary embolism. Normal thoracic aorta and visualized great vessels. There is no demonstrated aortic dissection. Normal heart and pericardium. Minimal coronary artery calcifications. Normal mediastinum. Normal hilar regions. Normal visualized trachea and bronchi. The lungs are well expanded. Normal pulmonary parenchyma. Normal pleura. Normal chest wall structures. Minimal degenerative changes of the thoracic spine. Normal visualized upper abdomen. CT/CTA Chest W/WO Contrast IMPRESSION: Essentially normal CTA chest examination, without a demonstrated pulmonary embolism or arterial dissection. Electronically Signed: Fidencio Smalls DO at 19:31 EDT ,
[2021-12-01] MEDS: 0.9% Saline Lock 10 ML Syringe IV ×2 (17:31→20:37)
[2021-12-01 17:53] LABS: Creatinine, Serum 1.07 mg/dL (0.70-1.30); EST Glomerular Filtration Rate 78 mL/min (>60); Est Glom Filt Rate - Afr Amer 95 mL/min (>60); Estimated Creatinine Clearance 92.67 ml/min
[2021-12-01] MEDS: Metoprolol Tartrate 25 MG Tablet 12.5 MG PO (20:36)
[2021-12-01] MEDS: Atorvastatin Calcium 40 MG Tablet PO (20:37)
[2021-12-01] MEDS: LORazepam 0.5 MG Tablet PO (21:28)
[2021-12-01 21:29] LABS: Troponin-I HS 6 pg/mL (3.0-78.0)
[2021-12-02] VITALS (15 sets, daily range): BP systolic 99–121; BP diastolic 60–87; PULSE 67–85; RESP 18–20; TEMP 36.1–36.7; O2SAT 93–99
[2021-12-02] MEDS: Heparin Injection (Vial) 5,000 UNIT/ML VIAL IV (00:07)
[2021-12-02] MEDS: MELATONIN 3 MG TABLET PO (00:08)
[2021-12-02] MEDS: Paroxetine 20 MG Tablet 80 MG PO (01:43)
[2021-12-02] MEDS: 0.9% Saline Lock 10 ML Syringe IV (04:07)
[2021-12-02] MEDS: Ondansetron 4 MG/2 ML Vial IV (04:07)
--- NOTE | 2021-12-02 05:55 | EKG12_ITS ---
Test Reason : CP ADMIT Blood Pressure : / mmHG Vent. Rate : 060 BPM Atrial Rate : 060 BPM P-R Int : 164 ms QRS Dur : 094 ms QT Int : 460 ms P-R-T Axes : 013 026 049 degrees QTc Int : 460 ms Normal sinus rhythm Normal ECG When compared with ECG of 26-MAY-2021 14:43, No significant change was found Confirmed by VANE DIEGO, KAILA ([id number]), slot editor DEEDEE ROSALES ([id number]) on 12/05/2021 1:57:51 PM Referred By: MAYKEL Confirmed By:KAILA CIFUENTES MD
[2021-12-02] MEDS: Clopidogrel Bisulfate 75 MG Tablet PO (06:11)
[2021-12-02] MEDS: Metoprolol Tartrate 25 MG Tablet 12.5 MG PO (06:11)
[2021-12-02 06:36] LABS: Absolute Lymphocyte Count 1.66 X10^3/uL (0.83-4.51); Absolute Neutrophil Count 4.7 X10^3/uL (2.0-7.7); Basophil# 0.03 X10^3/uL; Basophil% 0.4 % (0-1); Eosinophils% 1.4 % (0-5); Hematocrit 41.8 % (40-54); Hemoglobin 14.5 g/dL (13.0-16.5); Lymphocyte # 1.66 X10^3/ul (0.83-4.51); Lymphocyte % 23.5 % (19-41); Mean Corp Hgb Conc 34.7 g/dL (32-36); Mean Corpuscular Hgb 30.3 pg (27.0-32.0); Mean Corpuscular Volume 87.3 fL (80-94); Mean Platelet Vol. 10.6 fl (6.2-12.0); Monocyte% 7.1 % (0-10); NRBC Flagged by Analyzer 0 % (0-5); Neutrophil # 4.72 X10^3/uL (2.7-7.7); Neutrophil % 66.9 % (47-70); Platelet Count 186 K/mm3 (150-450); RBC Distribution Width CV 13.1 % (11.6-14.6); RBC Distribution Width SD 40.8 fl (35.1-43.9); Red Blood Count 4.79 M/mm3 (4.6-6.2); White Blood Count 7.1 K/mm3 (4.4-11.0)
[2021-12-02 06:57] LABS: Anion Gap 8 (5-15); BUN 21 mg/dL (7-18); BUN/Creat Ratio 17.1 RATIO (10-20); Calcium,Total 7.6 mg/dL (8.5-10.1); Chloride 103 mmol/L (98-107); Creatinine, Serum 1.23 mg/dL (0.70-1.30); EST Glomerular Filtration Rate 67 mL/min (>60); Est Glom Filt Rate - Afr Amer 81 mL/min (>60); Estimated Creatinine Clearance 80.61 ml/min; Glucose 136 mg/dL (74-106); Phosphorus 2.9 mg/dL (2.5-4.9); Potassium 3.7 mmol/L (3.5-5.1); Sodium Level 136 mmol/L (136-145)
--- NOTE | 2021-12-02 07:45 | PCM.PN.HOSP ---
Subjective Subjective Patient seen still complains of some discomfort. Had significant response to IV Lasix. His troponin so far negative to date. He had an elevated D-dimer CT of the chest obtained was negative for PE. Patient scheduled to undergo left heart catheterization Objective Data Objective Data Vital Signs: Vital Signs Temp Pulse Resp BP Pulse Ox 97.5 F L 74 20 H 121/87 H 94 12/02/21 06:06 12/02/21 07:02 12/02/21 06:06 12/02/21 06:06 12/02/21 06:06 Oxygen Delivery Method Room Air Weight: 125.8 kg Body Mass Index (BMI) 37.5 Intake & Output: Intake and Output for Last 24 Hours 11/30/21 12/01/21 12/02/21 23:59 23:59 23:59 Intake Total 441.25 / 621.25 413.85 / 413.85 Balance 441.25 / 621.25 413.85 / 413.85 Lab / Micro Data Result Diagrams: 12/02/21 06:25 12/02/21 06:25 Labs: Laboratory Results - last 24 hr 12/01/21 14:35: Troponin I High Sens 6 12/01/21 14:35: WBC 5.0, RBC 4.84, Hgb 14.7, Hct 41.9, MCV 86.6, MCH 30.4, MCHC 35.1, RDW Std Deviation 40.6, RDW Coeff of Essie 13.0, Plt Count 171, MPV 10.7, Immature Gran % (Auto) 0.800, Neut % (Auto) 63.2, Lymph % (Auto) 24.8, [place] % (Auto) 8.6, Eos % (Auto) 2.2, Baso % (Auto) 0.4, Absolute Neuts (auto) 3.2, Absolute Lymphs (auto) 1.24, Nucleated RBC % 0 12/01/21 14:35: PT 12.5, INR 1.0, APTT 24.6, D-Dimer Quant (PE/DVT) 0.68 H* 12/01/21 16:25: Troponin I High Sens 8 12/01/21 16:25: Creatinine 1.07, Estim Creat Clear Calc 92.67, Est GFR (MDRD) Af Amer 95, Est GFR (MDRD) Non-Af 78 12/01/21 20:40: Troponin I High Sens 6 12/01/21 22:38: APTT 51.0 H 12/02/21 06:25: WBC 7.1, RBC 4.79, Hgb 14.5, Hct 41.8, MCV 87.3, MCH 30.3, MCHC 34.7, RDW Std Deviation 40.8, RDW Coeff of Essie 13.1, Plt Count 186, MPV 10.6, Immature Gran % (Auto) 0.700, Neut % (Auto) 66.9, Lymph % (Auto) 23.5, [place] % (Auto) 7.1, Eos % (Auto) 1.4, Baso % (Auto) 0.4, Absolute Neuts (auto) 4.7, Absolute Lymphs (auto) 1.66, Nucleated RBC % 0 12/02/21 06:25: Sodium 136, Potassium 3.7, Chloride 103, Carbon Dioxide 25.0, Anion Gap 8, BUN 21 H, Creatinine 1.23, Estim Creat Clear Calc 80.61, Est GFR (MDRD) Af Amer 81, Est GFR (MDRD) Non-Af 67, BUN/Creatinine Ratio 17.1, Glucose 136 H, Calcium 7.6 L, Phosphorus 2.9 Radiography Diagnostic Testing: Radiology Impression Chest CTA 12/01/21 17:21 IMPRESSION: Essentially normal CTA chest examination, without a demonstrated pulmonary embolism or arterial dissection. Electronically Signed: Fidencio Smalls DO at 19:31 EDT Reading Location ID and State: [address] [place] [address] Tel [phone], Service support , Physical Exam Narrative GENERAL: cooperative HEENT: Atraumatic; EYES; Anicteric, Normal Conjunctiva NECK; supple, normal thyroid, RESPIRATORY: Diminished to auscultation CARDIOVASCULAR: Regular S1 S2, GI: soft, normoactive bowel sounds, : No Renal angle tenderness; EXTREMITIES: No edema, no clubbing, MUSCULOSKELETAL: no muscle wasting NEURO: Awake; no lateralizing signs. SKIN: No Rash PSYCH; Flat affect Assessment & Plan Assessment/Plan (1) Chest pain: QUALIFIERS: Chest pain type: unspecified Qualified Code(s): R07.9 - Chest pain, unspecified PLAN: Patient is a 46-year-old gentleman with significant past cardiac history presenting with chest pain 1. Chest pain ? Consistent with unstable angina. Patient has history of non-STEMI for which left heart catheterization revealed 100% occlusion of OM 2 lesion that was treated with thrombectomy and drug-eluting stent placement on 02/24/2021. Patient presented with typical symptoms. Patient has been placed on a monitored bed started on heparin in addition to beta-blockers as well as continuation of his antiplatelet therapy with Plavix. Patient is on apixaban held. Ordered 2D echo and consultation placed to cardiology Case discussed with Dr. Scott - 12/02/2021 scheduled to undergo left heart catheterization 2. Coronary artery disease ? With previous PCI with LILIA to OM2 lesion 3. Hypercoagulable status?factor V Leyden mutation ? With previous blood clots patient is on apixaban currently being held 4. Hypertension - Blood pressure controlled, home medications continued with dose adjustment as needed 5. Dyslipidemia -Patient is on statin therapy, continued at home dose 6. Class II obesity with BMI of 37.6 ? Weight loss advised 7. Depression with anxiety ? Patient is on paroxetine did continue 8. DVT prophylaxis ? Patient is on systemic anticoagulation with heparin Charges/Coding Visit Charges Inpatient E&M: 09582 Subs Hosp L2
[2021-12-02 08:06] LABS: Partial Thromboplast Time 78.8 Seconds (24.1-36.2)
--- NOTE | 2021-12-02 09:07 | CASEMGMT ---
According to the [facility] website, the following are in-network tertiary facilities: [facility], [place], [facility], [facility], [facility], [facility], [facility], [place], [facility], and . Yonis ORTEGA CM
[2021-12-02] MEDS: ARIPiprazole 5 MG Tablet 15 MG PO (09:40)
[2021-12-02] MEDS: Furosemide 40 MG/4 ML Vial IV (09:41)
--- NOTE | 2021-12-02 10:20 | CASEMGMT ---
SHANNON ROSS assessment: Face to Face with patient for initial transition planning/care coordination assessment. SHANNON ROSS introduced self and role at [facility], pt voices understanding and consents to assessment. Pt is sitting up in bed in no distress on room air. Pt is A/Ox4 and answers all questions appropriately. Care providers, pharmacy, and demographics verified/updated. Presentation: Pt was a direct admit from [facility] for cp Admitting dx: CP, unstable angina PCP: Hardeep Specialists: Shelbie, alana Preferred Pharmacy: [facility] Insurance: [facility] Prescription Benefit: [facility] Living Will/HPOA: Pt has LW/HPOA and is aware that they are on file at [facility]. Pt's , Sherley Nicolas, is HPOA. LNOK: Sherley Nicolas, /HPOA Living Arrangements: Pt lives with in apt on 3rd floor with elevator and states no concerns at home. Pt is independent with ADL's. Transportation: Pt drives self and states no transportation concerns. DME/HHC: Pt has a BP cuff and states no further need for DME. Pt states no hx of HHC or SNF in the past. Pt states no concerns with going home at time of discharge. 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 Pt states does not smoke cigarettes or drink ETOH. Pt voices no further concerns/needs. CM to follow for any further discharge planning/needs. Advised pt to ask for CM if any further questions/concerns/needs arise, voices understanding. Pt Goal: Home Plan: [place] SHANNON ROSS
[2021-12-02] MEDS: 0.9% Normal Saline 1,000 ML 60 ML IV (12:37)
--- NOTE | 2021-12-02 13:40 | CL.D_ITS ---
Patient Name: MARLENE WILSON Study Date: 12/02/2021 Performing: Richar Scott MD Ht: 72 inches 183 cm : 1975 Wt: 278.1 lbs 126 kg Age: 46 Gender: male BSA: 2.45 PROCEDURE(S) PERFORMED DC02-(37918)C/COR CLINICAL PROFILE AND INDICATIONS Indications: Chest pain Heart Failure: None Stress/Imaging Stress/Image Study Performed: No CAD Presentations: Unstable angina. CONCLUSIONS CAD as described that is unchanged from final post PCI pictures in January 2021. RECOMMENDATIONS Continue medical therapy for CAD DESCRIPTION OF PROCEDURE The patient arrived to the procedure lab. The risks and benefits of the procedure as well as a full d escription of our services here and current unavailability of surgical backup were fully explained to the patient and/or their significant other prior to the catheterization. The Timeout was completed, verifying the correct patient and procedure. The patient's procedural site was prepped and draped in the usual fashion. Local anesthetic was given subcutaneously to right radial region with Lidocaine 2% . Using a modified Seldinger technique, arterial access was obtained via the right radial artery, a 5 Fr sheath was inserted. Left Coronary Artery selective angiography was performed in multiple views u sing a 5 Fr. JL3.5 catheter. LV to AO pullback pressures were then recorded. Right Coronary Artery se lective angiography was then performed in multiple views using a 5 Fr. JR 4 catheter.The arterial she ath was pulled and a TR Band was applied for hemostasis CORONARY ANGIOGRAPHY DOMINANCE: Right Dominant LEFT HEART ASSESSMENT LEFT MAIN: No significant disease noted LEFT ANTERIOR DESCENDING ARTERY: PROX LAD: 30 % Stenosis CIRCUMFLEX ARTERY: DISTAL CIRC: 50-60 % Stenosis OM 1: Proximal - 40-50 % Stenosis OM 2: Proximal - Previously placed stent is patent RIGHT CORONARY ARTERY: PROX RCA: 25 % Stenosis VALVE FINDINGS: No Aortic Valve Stenosis COMPLICATIONS No Complications PROCEDURE MEDICATIONS Fentanyl 50 mcg IV Versed 1 mg IV Oxygen: 2 L/min via nasal cannula Heparin given IA 12/02/2021 11:29:19 Verapamil 2.5mg, Ntg 100mcgs, 3000 units of Heparin given IA 12/02/2021 11:29:19 SUMMARY OF HEMODYNAMIC DATA Time AIR REST ECG 11:02:47 AO 93/73 (80) SA 11:32:56 LV 116/-1, 22 11:43:33 LV 109/0, 19 11:43:39 LVp 103/66, 70 11:44:02 AOp 105/66 (83) 11:44:07 Signed By Richar Scott MD On 12/02/2021 13:40:10 Richar Scott MD
--- NOTE | 2021-12-02 13:48 | PCM.DC.SUM ---
Providers Date of Admission: 12/01/21 Primary Care Physician: Dr. Hannah Meier, Consultations 12/01/21 13:13 Consult: Cardiology Routine Consulting Provider: Mike Scott Reason for Consult: UNSTABLE ANGINA EMERGENT Consult: No MD Notified: Yes Date Notified: 12/01/21 Time Notified: 13:16 Method of Notification: Verbal Method of Consult:: In-Person Reason For Visit: CHEST PAIN Diagnosis Discharge Diagnosis (1) Chest pain: Status: Acute Code(s): R07.9 - Chest pain, unspecified Qualifiers: Chest pain type: unspecified Qualified Code(s): R07.9 - Chest pain, unspecified Medications at Discharge Home Medications aripiprazole [Abilify] 15 mg PO DAILY 02/23/21 paroxetine HCl [Paxil] 80 mg PO DAILY 02/23/21 apixaban 5 mg tablet 5 mg PO BID #60 tab 03/15/21 clopidogrel 75 mg tablet 75 mg PO QDAY #90 tab 04/06/21 lorazepam 0.5 mg PO BID PRN PRN 05/26/21 atorvastatin 40 mg tablet 40 mg PO QHS #90 tab 08/02/21 metoprolol tartrate 25 mg tablet 12.5 mg PO BID #90 tab 08/02/21 furosemide [Lasix] 20 mg PO DAILY #90 tab 12/02/21 potassium chloride 20 meq PO DAILY #90 tab 12/02/21 Hospital Course Procedures 2-D Echocardiogram and Cardiac catheterization Summary of Care Provided Minutes Spent on Discharge: 45 Hospital Course: Patient is a 46-year-old gentleman with significant past cardiac history presenting with chest pain 1. Chest pain ? Consistent with unstable angina. Patient has history of non-STEMI for which left heart catheterization revealed 100% occlusion of OM 2 lesion that was treated with thrombectomy and drug-eluting stent placement on 02/24/2021. Patient presented with typical symptoms. Patient has been placed on a monitored bed started on heparin in addition to beta-blockers as well as continuation of his antiplatelet therapy with Plavix. Patient is on apixaban held. Ordered 2D echo and consultation placed to cardiology Case discussed with Dr. Scott - 12/02/2021 scheduled to undergo left heart catheterization ?Patient left heart catheterization demonstrated patent stents and no new obstructive lesions. Patient was discharged to. 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 Coronary artery disease ? With previous PCI with LILIA to OM2 lesion 3. Hypercoagulable status?factor V Leyden mutation ? With previous blood clots patient is on apixaban currently being held 4. Hypertension - Blood pressure controlled, home medications continued with dose adjustment as needed 5. Dyslipidemia -Patient is on statin therapy, continued at home dose 6. Class II obesity with BMI of 37.6 ? Weight loss advised 7. Depression with anxiety ? Patient is on paroxetine did continue 8. DVT prophylaxis ? Patient is on systemic anticoagulation with heparin Physical Exam Narrative GENERAL: cooperative HEENT: Atraumatic; EYES; Anicteric, Normal Conjunctiva NECK; supple, normal thyroid, RESPIRATORY: Diminished to auscultation CARDIOVASCULAR: Regular S1 S2, GI: soft, normoactive bowel sounds, : No Renal angle tenderness; EXTREMITIES: No edema, no clubbing, MUSCULOSKELETAL: no muscle wasting NEURO: Awake; no lateralizing signs. SKIN: No Rash PSYCH; Flat affect Weight / BMI Weight Weight: 125.8 kg Body Mass Index (BMI) 37.5 ABG / Lab / Microbiology Data Result Diagrams: 12/02/21 06:25 12/02/21 06:25 Laboratory: Laboratory Results - last 24 hr 12/01/21 14:35: Troponin I High Sens 6 12/01/21 14:35: WBC 5.0, RBC 4.84, Hgb 14.7, Hct 41.9, MCV 86.6, MCH 30.4, MCHC 35.1, RDW Std Deviation 40.6, RDW Coeff of Essie 13.0, Plt Count 171, MPV 10.7, Immature Gran % (Auto) 0.800, Neut % (Auto) 63.2, Lymph % (Auto) 24.8, [place] % (Auto) 8.6, Eos % (Auto) 2.2, Baso % (Auto) 0.4, Absolute Neuts (auto) 3.2, Absolute Lymphs (auto) 1.24, Nucleated RBC % 0 12/01/21 14:35: PT 12.5, INR 1.0, APTT 24.6, D-Dimer Quant (PE/DVT) 0.68 H* 12/01/21 16:25: Troponin I High Sens 8 12/01/21 16:25: Creatinine 1.07, Estim Creat Clear Calc 92.67, Est GFR (MDRD) Af Amer 95, Est GFR (MDRD) Non-Af 78 12/01/21 20:40: Troponin I High Sens 6 12/01/21 22:38: APTT 51.0 H 12/02/21 06:25: WBC 7.1, RBC 4.79, Hgb 14.5, Hct 41.8, MCV 87.3, MCH 30.3, MCHC 34.7, RDW Std Deviation 40.8, RDW Coeff of Essie 13.1, Plt Count 186, MPV 10.6, Immature Gran % (Auto) 0.700, Neut % (Auto) 66.9, Lymph % (Auto) 23.5, [place] % (Auto) 7.1, Eos % (Auto) 1.4, Baso % (Auto) 0.4, Absolute Neuts (auto) 4.7, Absolute Lymphs (auto) 1.66, Nucleated RBC % 0 12/02/21 06:25: Sodium 136, Potassium 3.7, Chloride 103, Carbon Dioxide 25.0, Anion Gap 8, BUN 21 H, Creatinine 1.23, Estim Creat Clear Calc 80.61, Est GFR (MDRD) Af Amer 81, Est GFR (MDRD) Non-Af 67, BUN/Creatinine Ratio 17.1, Glucose 136 H, Calcium 7.6 L, Phosphorus 2.9 12/02/21 06:25: APTT 78.8 H Radiography Diagnostic Testing: Radiology Impression Echocardiogram 12/01/21 12:53 Interpretation Summary The estimated ejection fraction is 55-60 %. Normal diastology for age. Trivial mitral valve insufficiency. Ordering Physician: Loco Palencia Referring Physician: HANNAH MEIER Performed By: Kaia Tripp, RICHIE Chest CTA 12/01/21 17:21 IMPRESSION: Essentially normal CTA chest examination, without a demonstrated pulmonary embolism or arterial dissection. Electronically Signed: Fidencio Smalls DO at 19:31 EDT Reading Location ID and State: [address] [place] [address] Tel [phone], Service support , D/C Instructions Discharge Diet: Low fat / Low cholesterol Discharge Activity: Return to Normal Activity Call your doctor if you observe: Fever of 101 or Higher, Shortness of breath, Fainting spells and Chest pain Meaningful Use Info Meaningful Use Diagnoses (Choose all that apply): None applicable Discharge Plan Admission Admit Date/Time: 12/01/21 12:47 Attending Provider: Loco Palencia Primary Care Provider: Hannah Meier Consulting Providers: Nasir Granados ; Mike Scott Discharge Orders/Prescriptions Prescriptions: New furosemide [Lasix] 20 mg tablet 20 mg PO DAILY Qty: 90 RF: 0 potassium chloride 20 mEq tablet extended release 20 meq PO DAILY Qty: 90 RF: 0 Continued Eliquis 5 mg tablet 5 mg PO BID Qty: 60 RF: 11 aripiprazole [Abilify] 2 mg tablet 15 mg PO DAILY RF: 0 paroxetine HCl [Paxil] 20 mg tablet 80 mg PO DAILY RF: 0 lorazepam 0.5 mg tablet 0.5 mg PO BID PRN PRN (Reason: Anxiety) RF: 0 clopidogrel [Plavix] 75 mg tablet 75 mg PO QDAY Qty: 90 RF: 3 metoprolol tartrate 25 mg tablet 12.5 mg PO BID Qty: 90 RF: 4 atorvastatin 40 mg tablet 40 mg PO QHS Qty: 90 RF: 4 Referrals / Follow Up: Hannah Meier DO [Primary Care Provider] - Within 1 Week Mike Scott MD [STAFF PHYSICIAN] - Within 1 Month Disposition Disposition (needs filled in before D/C Order can be placed): Home, Self Care Charges/Coding Visit Charges Inpatient E&M: 40634 Disch Hosp
--- NOTE | 2021-12-02 14:24 | PHA.DC.MC ---
Pharmacy Service has performed discharge medication reconciliation and counseling for this patient. 1. FUROSEMIDE 20MG PO DAILY 2. POTASSIUM CHLORIDE 20MEQ PO DAILY The patient's discharge medication list was reviewed for discrepancies and discrepancies were resolved. Home Medications aripiprazole [Abilify] 15 mg PO DAILY 02/23/21 paroxetine HCl [Paxil] 80 mg PO DAILY 02/23/21 apixaban 5 mg tablet 5 mg PO BID #60 tab 03/15/21 clopidogrel 75 mg tablet 75 mg PO QDAY #90 tab 04/06/21 lorazepam 0.5 mg PO BID PRN PRN 05/26/21 atorvastatin 40 mg tablet 40 mg PO QHS #90 tab 08/02/21 metoprolol tartrate 25 mg tablet 12.5 mg PO BID #90 tab 08/02/21 furosemide [Lasix] 20 mg PO DAILY #90 tab 12/02/21 potassium chloride 20 meq PO DAILY #90 tab 12/02/21 The patient was counseled on the following discharge medications and changes in medications for homegoing were reviewed. The Reason for Use, instructions for use, and potential side effects were reviewed for all new medications. The patient's questions regarding all of their medications were answered. The patient was able to verbally demonstrate an understanding of their discharge medications.
== END 2021-12-02 18:04 | disposition home or self-care (01) | DRG 191 ==
PROVIDERS: Admitting Provider Internal Medicine; Visit Provider Internal Medicine
DX: I25.110 Atherosclerotic heart disease of native coronary artery with unstable angina pectoris (principal); D68.51 Activated protein C resistance; I10 Essential (primary) hypertension; E78.5 Hyperlipidemia, unspecified; I34.0 Nonrheumatic mitral (valve) insufficiency; F41.9 Anxiety disorder, unspecified; I25.2 Old myocardial infarction; E87.70 Fluid overload, unspecified; F32.A Depression, unspecified; E66.9 Obesity, unspecified; Z68.37 Body mass index [BMI] 37.0-37.9, adult; Z79.01 Long term (current) use of anticoagulants; Z79.02 Long term (current) use of antithrombotics/antiplatelets; Z79.899 Other long term (current) drug therapy; Z95.5 Presence of coronary angioplasty implant and graft; Z86.718 Personal history of other venous thrombosis and embolism
CPT/HCPCS: 36415; 71275; 80048; 82565; 84100; 84484; 85025; 85379; 85610; 85730; 93005; 93306; 93454; 99152; 99153; J7030; J7040; Q9967; A4216; C1769; C1894; J1940; J2405